=== PATIENT | female | born 1975 | race Two or more races ===

== ENCOUNTER 2025-08-17 18:11 | Inpatient (IN) | payer MEDICAID, OTHER ==
[~2025-08-17] VITALS: Ht 162.6 cm; Wt 100.4 kg
[2025-08-17] MEDS: ACETAMINOPHEN 500 MG TAB or CAP PO ONE (18:30)
[2025-08-17] MEDS: IBUPROFEN 600 MG TAB PO ONE ×2 (19:04→20:39)
--- NOTE | 2025-08-17 19:54 | ED.PDOC ---
History of Present Illness HPI Comments 49-year-old female who came to ER for flu-like symptoms. Patient denies any medical problems. States for the past 2 months, she has been having on and off fever, generalized muscle and joint pains, difficulty ambulating because of the pain, throat pain, was noted to have excessive urination especially at night. Upon arrival temperature is 103 F Chief Complaint: Flu like Time Seen by MD: 19:54 Reviewed Notes: Nurses Notes Allergies: Coded Allergies: NO KNOWN ALLERGIES (Unverified , 08/17/25) Home Meds Reported Medications Paroxetine (PAXIL TABLET) 20 Mg Tb, 40 MG GT for 30 Days 08/17/25 Trazodone Hcl (Trazodone Hcl) 100 Mg Tab, 100 MG PO, MG 08/17/25 Information Source: Patient Mode of Arrival: Ambulatory Severity: Moderate Past Medical History PAST MEDICAL HISTORY: Anxiety Surgical History: Denies all surgeries FINANCE PROFESSIONAL History: Denies all FINANCE PROFESSIONAL Hx Family History Family History: Reviewed,noncontributory to illness Social History Smoker: Non-Smoker Alcohol: Denies ETOH Use Drugs: Denies Drug Use Lives In: Home Constitutional: reports: fatigue, malaise, weakness; denies: chills, diaphoresis, fever, sweats, others EENTM: denies: blurred vision, double vision, ear bleeding, ear discharge, ear drainage, ear pain, ear ringing, eye pain, eye redness, hearing loss, mouth pain, mouth swelling, nasal discharge, nose bleeding, nose congestion, nose pain, photophobia, tearing, throat pain, throat swelling, voice changes, others Respiratory: denies: cough, hemoptysis, orthopnea, SOB at rest, shortness of breath, SOB with excertion, stridor, wheezing, others Cardiovascular: denies: chest pain, dizzy spells, diaphoresis, Dyspnea on exertion, edema, irregular heart beat, left arm pain, lightheadedness, palpitations, PND, syncope, others Gastrointestinal: denies: abdomen distended, abdominal pain, blood streaked bowels, constipated, diarrhea, dysphagia, difficulty swallowing, hematemesis, melena, nausea, poor appetite, poor fluid intake, rectal bleeding, rectal pain, vomiting, others Genitourinary: denies: abnormal vagina bleeding, burning, dyspareunia, dysuria, flank pain, frequency, hematuria, incontinence, pain, , vagina discharge, urgency, others Neurological: denies: dizziness, fainting, headache, left sided numbness, left sided weakness, numbness, paresthesia, pre-existing deficit, right sided numbness, right sided weakness, seizure, speech problems, tingling, tremors, weakness, others Musculoskeletal: denies: back pain, gout, joint pain, joint swelling, muscle pain, muscle stiffness, neck pain, others Integumetry: denies: bruises, change in color, change in hair/nails, dryness, laceration, lesions, lumps, rash, wounds, others Allergic/Immunocompromised: denies: Difficulty Healing, Frequent Infections, Hives, Itching, others Hematologic/Lymphatic: denies: anemia, blood clots, easy bleeding, easy bruising, swollen glands, others Endocrine: reports: excessive urination; denies: excessive hunger, excessive sweating, excessive thirst, flushing, intolerance to cold, intolerance to heat, unexplained weight gain, unexplained weight loss, others Psychiatric: denies: anxiety, bipolar disorder, depression, hopeless, panic disorder, schizophrenia, sleepless, suicidal, others Physical Exam General Appearance: No Apparent Distress, Normal HEENT: Normal ENT Inspection, Pharynx Normal, TMs Normal Neck: Full Range of Motion, Non-Tender, Normal, Normal Inspection Respiratory: Chest Non-Tender, Lungs Clear, No Accessory Muscle Use, No Respiratory Distress, Normal Breath Sounds Cardiovascular: No Edema, No JVD, No Murmur, No Gallop, Normal Peripheral Pulses, Regular Rate/Rhythm Breast Exam: Deferred Gastrointestinal: No Organomegaly, Non Tender, No Pulsatile Mass, Normal Bowel Sounds, Soft Genitalia: Deferred Pelvic: Deferred Rectal: Deferred Extremities: No calf tenderness, Normal capillary refill, Normal inspection, Normal range of motion, Non-tender, No pedal edema Musculoskeletal : Apperance: Normal Neurologic: Alert, ingredient specialist II-XII nml as Tested, No Motor Deficits, Normal Affect, Normal Mood, No Sensory Deficits Cerebellar Function: Normal Reflexes: Normal Skin: Dry, Normal Color, Warm Lymphatic: No Adenopathy Was a procedure done? Was a procedure done?: No EKG EKG : Pulse Rate (adult): 126 Cardiac Rhythm: ST Differential Dx Considerations may include: Anemia, electrolyte imbalance, viral syndrome X-Ray, Labs, Meds, VS Vital Signs Date Time Temp Pulse Resp B/P (MAP) Pulse Ox O2 Delivery O2 Flow Rate FiO2 08/17/25 20:31 Room Air* 0 21 08/17/25 20:30 98.9 111 18 91/66 (74) 95 98.9 08/17/25 19:55 126 08/17/25 19:04 103.2 08/17/25 19:00 103.2 103.2 08/17/25 19:00 103.2 08/17/25 18:30 103.0 08/17/25 18:17 103.0 131 18 122/76 94 103.0 Lab Test 08/17/25 20:26 08/17/25 20:07 08/17/25 20:01 Range/Units Urine Color Yellow Yellow Urine Clarity Turbid H Clear Urine pH 6.0 5.0-9.0 Urine Specific [place] 1.023 1.001-1.035 Urine Protein 1+ H Negative Urine Ketones Negative Negative Urine Blood Negative Negative /uL Urine Nitrite Negative Negative Urine Bilirubin Negative Negative Urine Urobilinogen 2 H Negative mg/dL Urine Leukocyte Esterase 2+ Negative /uL Urine RBC 3 0 - 4 /hpf Urine Microscopic WBC 9 H 0-5 /HPF Urine Squamous Epithelial Cells Mod <5 /hpf Urine Bacteria None seen None Seen /hpf Urine Mucus Few None Seen Urine Glucose Normal Normal mg/dL Influenza Type A Antigen Negative Negative Influenza Type B Antigen Negative Negative White Blood Count 14.4 H 4.4-10.8 10^3/uL Red Blood Count 5.24 H 4.0-5.20 10^6/uL Hemoglobin 14.6 12.2-16.2 g/dL Hematocrit 44.0 36.0-46.0 % Mean Corpuscular Volume 83.9 80.0-100.0 fL Mean Corpuscular Hemoglobin 27.8 L 28.0-32.0 pg Mean Corpuscular Hemoglobin Concent 33.1 32.0-36.0 g/dL Red Cell Distribution Width 13.2 11.8-14.3 % Platelet Count 342 140-450 10^3/uL Mean Platelet Volume 8.4 6.9-10.8 fL Neutrophils (%) (Auto) 82.4 H 37.0-80.0 % Lymphocytes (%) (Auto) 10.0 10.0-50.0 % Monocytes (%) (Auto) 7.3 0.0-12.0 % Eosinophils (%) (Auto) 0.1 0.0-7.0 % Basophils (%) (Auto) 0.2 0.0-2.0 % Neutrophils # (Auto) 11.9 H 1.6-8.6 10 ^3/uL Lymphocytes # (Auto) 1.4 0.4-5.4 10 ^3/uL Monocytes # (Auto) 1.1 0-1.3 10 ^3/uL Eosinophils # (Auto) 0 0-0.8 10 ^3/uL Basophils # (Auto) 0 0-0.2 10 ^3/uL Nucleated Red Blood Cells 0.0 % Sodium Level 134 L 136-145 mmol/L Potassium Level 3.8 3.5-5.1 mmol/L Chloride Level 100 98-107 mmol/L Carbon Dioxide Level 24 20-31 mmol/L Anion Gap 10 5-15 Blood Urea Nitrogen 14 9-23 mg/dL Creatinine 1.02 0.550-1.02 mg/dL Glomerular Filtration Rate Calc 67 >90 mL/min BUN/Creatinine Ratio 13.7 10.0-20.0 Serum Glucose 128 H 74-106 mg/dL Hemoglobin A1c 5.6 <5.7 % A1C Lactic Acid Level 1.2 0.4-2.0 mmol/L Calcium Level 9.3 8.7-10.4 mg/dL Total Bilirubin 0.6 0.2-1.0 mg/dL Aspartate Amino Transferase (AST) 38 13-40 U/L Alanine Aminotransferase (ALT) 64 H 7-40 U/L Alkaline Phosphatase 269 H 46-116 U/L Total Protein 8.2 5.7-8.2 g/dL Albumin 4.8 3.2-4.8 g/dL Beta HCG, Quantitative 1.3 L 1.5-4.2 mIU/mL Current Medications Medications (Trade) Dose Ordered Sig/Marika Route Start Time Stop Time Status Last Admin Acetaminophen (Tylenol Tablet Or Capsule) 1,000 mg ONCE ONCE PO 08/17/25 18:30 08/17/25 18:31 DC 08/17/25 18:30 Ibuprofen (Motrin Tablet) 600 mg ONCE ONCE PO 08/17/25 19:00 08/17/25 19:01 DC 08/17/25 19:04 Ibuprofen (Motrin Tablet) 600 mg ONCE ONCE PO 08/17/25 20:00 08/17/25 20:01 DC 08/17/25 20:39 Sodium Chloride 1,700 ml @ 1,700 mls/hr ONCE ONCE IV 08/17/25 20:00 08/17/25 20:59 DC 08/17/25 20:30 Ceftriaxone Sodium 50 ml @ 100 mls/hr ONCE ONCE IV 08/17/25 20:00 08/17/25 20:29 DC 08/17/25 20:30 CHEST RADIOGRAPH INDICATION: fever TECHNIQUE: Single frontal view of the chest was obtained COMPARISON: None FINDINGS: Lines and Tubes: None Lungs: No focal consolidation. Pleura: No effusion. No pneumothorax. Cardiomediastinal contours: Unremarkable Bones: No acute osseous abnormality. IMPRESSION: No acute cardiopulmonary disease. Time of 1ST Reevaluation: 19:52 Reevaluation 1ST: Unchanged Patient Education/Counseling: Diagnosis, Treatment Family Education/Counseling: Diagnosis, Treatment SEPSIS Sepsis Screen Date sepsis recognized/suspect: Aug 17, 2025 Time Sepsis recognized/suspect: 1818 Recent Procedure: No On Antibiotic Therapy: No Respiratory Rate >20: No Heart Rate >90: Yes Temp<36 C (96.8 F) or >38.3 C: No SBP <90 or MAP <65 mmHG: No New Acute Mental Status Change: No Is the patient on CPAP, BIPAP,: No Physician Orders Blood Culture (08/17/25 19:48) Chest Xray 1 View (08/17/25 19:48) Vital Signs Date Time Temp Pulse Resp B/P (MAP) Pulse Ox O2 Delivery O2 Flow Rate FiO2 08/17/25 20:31 Room Air* 0 21 08/17/25 20:30 98.9 111 18 91/66 (74) 95 98.9 08/17/25 19:55 126 08/17/25 19:04 103.2 08/17/25 19:00 103.2 103.2 08/17/25 19:00 103.2 08/17/25 18:30 103.0 08/17/25 18:17 103.0 131 18 122/76 94 103.0 Laboratory Tests Test 08/17/25 20:01 Lactic Acid Level 1.2 mmol/L (0.4-2.0) White Blood Count 14.4 10^3/uL (4.4-10.8) H Medications Medications Dose Ordered Sig/Marika Route Start Time Stop Time Status Last Admin Dose Admin Acetaminophen 1,000 mg ONCE ONCE PO 08/17/25 18:30 08/17/25 18:31 DC 08/17/25 18:30 Ceftriaxone Sodium 50 ml @ 100 mls/hr ONCE ONCE IV 08/17/25 20:00 08/17/25 20:29 DC 08/17/25 20:30 Ibuprofen 600 mg ONCE ONCE PO 08/17/25 19:00 08/17/25 19:01 DC 08/17/25 19:04 Ibuprofen 600 mg ONCE ONCE PO 08/17/25 20:00 08/17/25 20:01 DC 08/17/25 20:39 Sodium Chloride 1,700 ml @ 1,700 mls/hr ONCE ONCE IV 08/17/25 20:00 08/17/25 20:59 DC 08/17/25 20:30 Departure 1 Departure Time of Disposition: 21:50 Impression: Primary Impression: UTI (urinary tract infection) Additional Impression: Pyelonephritis Disposition: ADMITTED INPATIENT Admit to: Med Surg Condition: Guarded Discharged With: Self Comments 49 yo female with malaise and high fever. WBC elevated 14. UA shows UTI. given IV fluids and IV antibiotics. will need admit for supportive care and further workup Critical Care Note Critical Care Time?: No Stability Stability form required: No Heart Score Heart Score: Heart Score Response (Comments) Value History N/A 0 EKG N/A 0 Age N/A 0 Risk Factors N/A 0 Troponin N/A 0 Total 0 I personally scribed for ALLISON GUERRERO MD (NEELIMA) on 08/17/25 at 19:54. Electronically submitted by Anthony Galan ([employer]). I personally scribed for ALLISON GUERRERO MD (NEELIMA) on 08/17/25 at 19:55. Electron[facility] submitted by [facility] Gal[facility] ([facility] I personally scribed for ALLISON GUERRERO MD (NEELIMA) on 08/17/25 at 21:44. Electronically submitted by Anthony Galan ([facility] ALLISON GUERRERO MD Aug 17, 2025 19:54
[2025-08-17 20:25] LABS: Hematocrit 44.0 % (36.0-46.0); Hemoglobin 14.6 g/dL (12.2-16.2); Mean Corpuscular Hemoglobin 27.8 pg (28.0-32.0); Mean Corpuscular Volume 83.9 fL (80.0-100.0); Nucleated Red Blood Cells % 0.0 %
[2025-08-17] MEDS: SODIUM CHLORIDE 0.9% 1,700 ML IV ONE (20:30)
[2025-08-17 20:35] LABS: Urine Protein, UAD 1+ (Negative)
[2025-08-17] MEDS: ACETAMINOPHEN 325 MG TAB PO ONE (20:39)
--- NOTE | 2025-08-17 20:39 | DVH ---
CHEST RADIOGRAPH INDICATION: fever TECHNIQUE: Single frontal view of the chest was obtained COMPARISON: None FINDINGS: Lines and Tubes: None Lungs: No focal consolidation. Pleura: No effusion. No pneumothorax. Cardiomediastinal contours: Unremarkable Bones: No acute osseous abnormality. IMPRESSION: No acute cardiopulmonary disease.
[2025-08-17 20:42] LABS: Albumin 4.8 g/dL (3.2-4.8); Anion Gap 10 (5-15); BUN/Creatinine Ratio 13.7 (10.0-20.0); Blood Urea Nitrogen 14 mg/dL (9-23); Calcium 9.3 mg/dL (8.7-10.4); Carbon Dioxide 24 mmol/L (20-31); Chloride 100 mmol/L (98-107); Potassium 3.8 mmol/L (3.5-5.1)
[2025-08-17 20:43] LABS: Bilirubin, Total 0.6 mg/dL (0.2-1.0)
[2025-08-17 20:45] LABS: Alanine Aminotransferase 64 U/L (7-40); Alkaline Phosphatase 269 U/L (46-116); Glucose 128 mg/dL (74-106); Sodium 134 mmol/L (136-145); Total Protein 8.2 g/dL (5.7-8.2)
[2025-08-17] MEDS ORDERED: NITROGLYCERIN 0.4 MG SL TAB SL PRN (21:45)
[2025-08-17] MEDS ORDERED: DOCUSATE SOD 100 MG CAP PO PRN (21:45)
[2025-08-17] MEDS ORDERED: MORPHINE SULFATE INJ 2 MG/ml SYRG IV PRN ×2 (21:45)
--- NOTE | 2025-08-17 21:55 | DVHHPRES ---
History of Present Illness Resident Creating Document: LURDES BARRAZA RESIDENT History of Present Illness HERMES JONES A 49-year-old female with a history of generalized anxiety disorder, poor medical follow up, presents to the ER with flu-like symptoms, reporting intermittent fever, generalized muscle and joint pain causing difficulty ambulating, throat pain, and nocturnal polyuria for the past two months, with a current temperature of 103F and flu-like symptoms. PMHx: generalized anxiety PSHx: denies past surgeries OBGYN Hx: Denies pertinent MRI CT TECH Hx Family history: noncontributory Social history: Patient is a non-smoker, denies alcohol and drug use, and lives at home. Home medications: None Review of Systems Constitutional: Yes: Fever, Chills, Sweats, Malaise; No: Weakness, Other Eyes: No: Pain, Vision change, Conjunctivae inflammation, Eyelid inflammation, Other, Redness ENT: Throat pain; No: Ear pain, Ear discharge, Nose pain, Nose discharge, Nose congestion, Mouth pain, Mouth swelling, Throat swelling, Other Respiratory: No: Cough, Dry, Shortness of breath, SOB with excertion, Wheezing, Hemoptysis, Pleuritic Pain, Sputum, Wheezing, Other Cardiovascular: No: Chest Pain, Palpitations, Orthopnea, Paroxysmal Noc. Dyspnea, Edema, Lt Headedness, Other Gastrointestinal: No: Nausea, Vomiting, Abdominal Pain, Diarrhea, Constipation, Melena, Hematochezia, Other Genitourinary: Dysuria, Frequency; No Incontinence, No Hematuria, No Retention, No Other Musculoskeletal: No: other, neck pain, shoulder pain, arm pain, back pain, hand pain, leg pain, foot pain Skin: No: Rash, Lesions, Jaundice, Bruising, Other Neurological: No: Weakness, Numbness, Incoordination, Change in speech, Confusion, Seizures, Other Allergies: Coded Allergies: NO KNOWN ALLERGIES (Unverified , 08/17/25) Medications Current Medications Medications Dose Ordered Sig/Marika Route Start Time Stop Time Status Last Admin Dose Admin Acetaminophen/ Hydrocodone Bitart 1 tab Q4HP PRN PO 08/17/25 21:45 Ondansetron HCl 4 mg Q4HP PRN IV 08/17/25 21:45 Docusate Sodium 100 mg BIDPRN PRN PO 08/17/25 21:45 Enoxaparin Sodium 40 mg DAILY SC 08/18/25 10:00 Acetaminophen 650 mg Q6HP PRN PO 08/17/25 21:45 Morphine Sulfate 2 mg Q4HPRN PRN IV 08/17/25 21:45 Nitroglycerin 0.4 mg Q5MINP PRN SL 08/17/25 21:45 Morphine Sulfate 2 mg Q30M PRN IV 08/17/25 21:45 Famotidine 20 mg BID PO 08/17/25 22:00 UNV Exam Vital Signs Vital Signs Date Time Temp Pulse Resp B/P (MAP) Pulse Ox O2 Delivery O2 Flow Rate FiO2 08/17/25 20:31 Room Air* 0 21 08/17/25 20:30 98.9 111 18 91/66 (74) 95 98.9 General Appearance: Alert, Oriented X3, Cooperative, mild distress HEENT: Atraumatic, PERRLA, EOMI, Mucous membr. moist/pink Respiratory: Clear to auscultation, Normal air movement Cardiovascular: Regular rate, Normal S1, Normal S2, No murmurs Abdominal: Normal bowel sounds, Soft, No tenderness, No hepatospenomegaly, No masses, Other (NO CVA angle tenderness, suprapubic tenderness on deep palpation) Extremities: No clubbing, No cyanosis, No edema, Normal pulses, Other (no leg swelling) Skin: No rashes, No breakdown, No significant lesion Neuro: Normal gait, Normal speech, Strength at 5/5 X4 ext, Normal tone, Sensation intact, Cranial nerves 3-12 NL, Reflexes 2+ Psych/Mental Status: Mental status NL, Mood NL Labs/Xrays Labs Test 08/17/25 20:26 08/17/25 20:07 08/17/25 20:01 Range/Units Urine Color Yellow Yellow Urine Clarity Turbid H Clear Urine pH 6.0 5.0-9.0 Urine Specific [place] 1.023 1.001-1.035 Urine Protein 1+ H Negative Urine Ketones Negative Negative Urine Blood Negative Negative /uL Urine Nitrite Negative Negative Urine Bilirubin Negative Negative Urine Urobilinogen 2 H Negative mg/dL Urine Leukocyte Esterase 2+ Negative /uL Urine RBC 3 0 - 4 /hpf Urine Microscopic WBC 9 H 0-5 /HPF Urine Squamous Epithelial Cells Mod <5 /hpf Urine Bacteria None seen None Seen /hpf Urine Mucus Few None Seen Urine Glucose Normal Normal mg/dL Influenza Type A Antigen Negative Negative Influenza Type B Antigen Negative Negative White Blood Count 14.4 H 4.4-10.8 10^3/uL Red Blood Count 5.24 H 4.0-5.20 10^6/uL Hemoglobin 14.6 12.2-16.2 g/dL Hematocrit 44.0 36.0-46.0 % Mean Corpuscular Volume 83.9 80.0-100.0 fL Mean Corpuscular Hemoglobin 27.8 L 28.0-32.0 pg Mean Corpuscular Hemoglobin Concent 33.1 32.0-36.0 g/dL Red Cell Distribution Width 13.2 11.8-14.3 % Platelet Count 342 140-450 10^3/uL Mean Platelet Volume 8.4 6.9-10.8 fL Neutrophils (%) (Auto) 82.4 H 37.0-80.0 % Lymphocytes (%) (Auto) 10.0 10.0-50.0 % Monocytes (%) (Auto) 7.3 0.0-12.0 % Eosinophils (%) (Auto) 0.1 0.0-7.0 % Basophils (%) (Auto) 0.2 0.0-2.0 % Neutrophils # (Auto) 11.9 H 1.6-8.6 10 ^3/uL Lymphocytes # (Auto) 1.4 0.4-5.4 10 ^3/uL Monocytes # (Auto) 1.1 0-1.3 10 ^3/uL Eosinophils # (Auto) 0 0-0.8 10 ^3/uL Basophils # (Auto) 0 0-0.2 10 ^3/uL Nucleated Red Blood Cells 0.0 % Sodium Level 134 L 136-145 mmol/L Potassium Level 3.8 3.5-5.1 mmol/L Chloride Level 100 98-107 mmol/L Carbon Dioxide Level 24 20-31 mmol/L Anion Gap 10 5-15 Blood Urea Nitrogen 14 9-23 mg/dL Creatinine 1.02 0.550-1.02 mg/dL Glomerular Filtration Rate Calc 67 >90 mL/min BUN/Creatinine Ratio 13.7 10.0-20.0 Serum Glucose 128 H 74-106 mg/dL Lactic Acid Level 1.2 0.4-2.0 mmol/L Calcium Level 9.3 8.7-10.4 mg/dL Total Bilirubin 0.6 0.2-1.0 mg/dL Aspartate Amino Transferase (AST) 38 13-40 U/L Alanine Aminotransferase (ALT) 64 H 7-40 U/L Alkaline Phosphatase 269 H 46-116 U/L Total Protein 8.2 5.7-8.2 g/dL Albumin 4.8 3.2-4.8 g/dL SEPSIS Sepsis Screen Date sepsis recognized/suspect: Aug 17, 2025 Time Sepsis recognized/suspect: 2030 Recent Procedure: No On Antibiotic Therapy: Yes Respiratory Rate >20: No Heart Rate >90: Yes Temp<36 C (96.8 F) or >38.3 C: No SBP <90 or MAP <65 mmHG: No New Acute Mental Status Change: No Is the patient on CPAP, BIPAP,: No Physician Orders Blood Culture (08/17/25 19:48) Chest Xray 1 View (08/17/25 19:48) Admit (08/17/25 21:34) Allergies (08/17/25:34) Code Status (08/17/25 21:34) Hydrocodone-Acet 5/325mg Tab ([place] 5/32 (08/17/25 21:45) Ondansetron Hcl (Zofran) (08/17/25 21:45) Docusate Sodium Capsule (Colace Capsule) (08/17/25 21:45) Enoxaparin Sodium (Lovenox) (08/18/25 10:00) Complete Blood Count (08/18/25 04:00) Comprehensive Metabolic Panel (08/18/25 04:00) Npo (Nothing By Mouth) Diet (08/18/25 Breakfast) Condition: Serious (08/17/25 21:34) Acetaminophen Tablet (Tylenol Tablet) (08/17/25 21:45) Morphine Sulfate Injection (08/17/25 21:45) Nitroglycerin Sublingual (Ntrostat Subli (08/17/25 21:45) Morphine Sulfate Injection (08/17/25 21:45) Oxygen By Nasal Cannula (08/17/25:34) Stat Ekg For Chest Pain (08/17/25 21:34) Notify Md Of Changes From Base (08/17/25 21:34) Communications Consultant For 24 Hours (08/17/25 21:34) Emergency Dysrhythmia Protocol (08/17/25 21:34) Rhythm Strips Once Every Shift (08/17/25 21:34) Urine Bacterial Culture (08/17/25 21:43) Rapid Strep Screen - Throat (08/17/25 21:43) Kidney (08/17/25 21:43) Cooling Swengel (08/17/25 21:45) Cooling Measure (08/17/25 ) Lactated Ringer's (08/17/25 21:45) Beta Hcg, Quantitative (08/17/25 21:46) Piperacillin-Tazob 3.375gm (Zosyn 3.375g (08/17/25 22:00) Famotidine Injection (Pepcid Injection) (08/17/25 22:00) Famotidine Tablet (Pepcid Tablet) (08/17/25 22:00) Abdomen Complete Sonogram (08/17/25 21:43) Covid19 Antigen Gena (08/17/25 ) Vital Signs Date Time Temp Pulse Resp B/P (MAP) Pulse Ox O2 Delivery O2 Flow Rate FiO2 08/17/25 20:31 Room Air* 0 21 08/17/25 20:30 98.9 111 18 91/66 (74) 95 98.9 08/17/25 19:55 126 08/17/25 19:04 103.2 08/17/25 19:00 103.2 103.2 08/17/25 19:00 103.2 08/17/25 18:30 103.0 08/17/25 18:17 103.0 131 18 122/76 94 103.0 Laboratory Tests Test 08/17/25 20:01 Lactic Acid Level 1.2 mmol/L (0.4-2.0) White Blood Count 14.4 10^3/uL (4.4-10.8) H Medications Medications Dose Ordered Sig/Marika Route Start Time Stop Time Status Last Admin Dose Admin Acetaminophen 1,000 mg ONCE ONCE PO 08/17/25 18:30 08/17/25 18:31 DC 08/17/25 18:30 1,000 MG Ceftriaxone Sodium 50 ml @ 100 mls/hr ONCE ONCE IV 08/17/25 20:00 08/17/25 20:29 DC 08/17/25 20:30 100 MLS/HR Ibuprofen 600 mg ONCE ONCE PO 08/17/25 19:00 08/17/25 19:01 DC 08/17/25 19:04 600 MG Ibuprofen 600 mg ONCE ONCE PO 08/17/25 20:00 08/17/25 20:01 DC 08/17/25 20:39 600 MG Sodium Chloride 1,700 ml @ 1,700 mls/hr ONCE ONCE IV 08/17/25 20:00 08/17/25 20:59 DC 08/17/25 20:30 1,700 MLS/HR Assessment/Plan Assessment/Plan #acute complicated UTI: Urinary symptoms with frequency urgency and burning, Urinalysis positive, also ruled out STDs in his sexually active female, although less likely given Predominant urinary symptoms. renal ultrasound to rule out any obstruction /stones. pending beta HCG rule out . rule out DM with HbA1C. #acute sepsis: WBC 14.4, predominant neutrophilia, fever, urinalysis indicative of acute UTI , sepsis bundle, sepsis dose IV fluid, blood culture, urine culture and IV antibiotics. Lactate negative. Keep a map over 65. #high-grade fever likely secondary due to infection /sepsis: 103 at presentation, cooling measures, Tylenol, to continue, appropriate reflex tac hycardia noted. #acute throat pain: for past 2-3 days, progressive, Rule out possible URI with COVID and strep throat to check, no signs of acute drooling. CXR wnl, in RA, breathing comfortably. #Transaminitis with alkaline phosphatase: Abdomen examination benign, ALT 64, alkaline phosphatase 269, with was reviewed rehabilitation, right upper quadrant ultrasound/ liver ultrasound to rule out any hepatobiliary pathology. Till ruled out hepatobiliary pathology, we will cover with Zosyn for anaerobic coverage. #Grade 1 obesity: 34.8 BMI, weight loss and lifestyle modification advised when patient is out of acute conditions. #Possible CKD versus POLA: No known baseline GFR in 60s avoid nephrotoxic, IV hydration to continue. Avoid NSAIDs. #Mild hypovolumic hyponatremia: Na 134, iv hydration, trend electrolytes. Diet: Regular PUD prophylaxis: famotidine p.o. DVT prophylaxis: Levonox 40mg/brisk movement. Barriers to discharge: Medical diagnosis and management in progress. Patient lives with family. Independent for ADL. PCP: none, personal care aid consulted. Previously Dr. Horan. Specialist Relevant To Admission: None at the time of admission. Case discussed with Dr. Marquez. Code Status: Full Code. Discussion for goals of care and plan of care needed total 27 minutes bedside. on telemetry for now hemodynamically unstable, once patient is more stable downgrade to [facility]. Plan discussed with: Patient My Orders Orders - LURDES BARRAZA RESIDENT Procedure Category Date Status Time Admit ADMIT 08/17/25 Transmitted 21:34 Allergies IGNACIO 08/17/25 In Process 21:34 Code Status CODE 08/17/25 Transmitted 21:34 Hydrocodone-Acet PHA 08/17/25 In Process 5/325mg Tab ([place]inckley 21:45 Ondansetron Hcl PHA 08/17/25 In Process (Zofran) 21:45 Docusate Sodium PHA 08/17/25 In Process Capsule (Colace 21:45 Enoxaparin Sodium PHA 08/18/25 In Process (Lovenox) 10:00 Complete Blood Count LAB 08/18/25 Verified 04:00 Comprehensive LAB 08/18/25 Verified Metabolic Panel 04:00 Npo (Nothing By DIET 08/18/25 Transmitted Mouth) Diet Breakfast Condition: Serious IGNACIO 08/17/25 In Process 21:34 Acetaminophen Tablet PHA 08/17/25 In Process (Tylenol Tablet) 21:45 Morphine Sulfate PHA 08/17/25 In Process Injection 21:45 Nitroglycerin PHA 08/17/25 In Process Sublingual (Ntrostat 21:45 Morphine Sulfate PHA 08/17/25 In Process Injection 21:45 Oxygen By Nasal RT 08/17/25 Transmitted Cannula 21:34 Stat Ekg For Chest IGNACIO 08/17/25 In Process Pain 21:34 Notify Md Of Changes IGNACIO 08/17/25 In Process From Base 21:34 Communications Consultant For IGNACIO 08/17/25 In Process 24 Hours 21:34 Emergency Dysrhythmia IGNACIO 08/17/25 In Process Protocol 21:34 Rhythm Strips Once IGNACIO 08/17/25 In Process Every Shift 21:34 Urine Bacterial LOS 08/17/25 In Process Culture 21:43 Rapid Strep Screen - LAB 08/17/25 Logged Throat 21:43 Kidney US 08/17/25 Logged 21:43 Cooling Swengel IGNACIO 08/17/25 In Process 21:45 Cooling Measure ED NURSING 08/17/25 Transmitted Lactated Ringer's PHA 08/17/25 In Process 21:45 Beta Hcg, Quantitative LAB 08/17/25 In Process 21:46 Piperacillin-Tazob PHA 08/17/25 Logged 3.375gm (Zosyn 3.375g 22:00 Famotidine Injection PHA 08/17/25 Logged (Pepcid Injection) 22:00 Famotidine Tablet PHA 08/17/25 Logged (Pepcid Tablet) 22:00 Abdomen Complete US 08/17/25 Logged Sonogram 21:43 Covid19 Antigen Gena LAB 08/17/25 Verified Date of Service: Aug 17, 2025 Billing Provider: FLORENTINO MARQUEZ MD Common Visit Codes: [id number] INP/OBS CARE (HIGH) Secondary Visit Codes: [id number] CARE PLAN 30 MINUTES LURDES BARRAZA RESIDENT Aug 17, 2025 21:55
[2025-08-17] MEDS: FAMOTIDINE (10MG/ML) 2ML VL IV ONE (22:11)
[2025-08-17] MEDS: LACTATED RINGER'S 1,000 ML IV ONE (22:11)
[2025-08-17] MEDS: PIPERACILLIN-TAZOB 3.375GM 100 ML IV ONE (22:14)
[2025-08-17] MEDS: FAMOTIDINE 20 MG TAB PO SCH (22:14)
[2025-08-17 22:59] VITALS: BP 107/76; PULSE 80; RESP 18; TEMP 98.2; O2SAT 98
[2025-08-17] MEDS ORDERED: TRAZ-228 PO (23:31)
[2025-08-17] MEDS ORDERED: PAR20T GT (23:31)
[2025-08-18] VITALS (7 sets, daily range): BP systolic 121–127; BP diastolic 67–96; PULSE 85–123; RESP 16–18; TEMP 97.3–101.9; O2SAT 92–96
[2025-08-18 00:21] LABS: COVID19 ANTIGEN SOFIA FIA NEGATIVE (NEGATIVE)
--- NOTE | 2025-08-18 00:26 | DVH ---
ULTRASOUND ABDOMEN: REASON FOR EXAM: Pain. Rule out hepatobiliary obstruction TECHNIQUE: Real-time sector scans in the transverse and longitudinal planes were obtained through the abdomen. FINDINGS: The liver is of normal size and contour. There is no intrahepatic biliary ductal dilatation. The hepatic veins are patent. There is hepatopetal flow in the portal vein. The common bile duct measures 4 mm. No gallstones or sludge are identified. There is no gallbladder wall thickening nor pericholecystic fluid. There is no sonographic Mendoza's sign. The spleen is normal in size. The visualized portion of the pancreas is unremarkable. The right kidney measures 8.4 cm. The left kidney measures 8.9 cm. There is no hydronephrosis or nephrolithiasis. There is no evidence of focal renal mass. There is an anechoic 2.1 cm cyst at the superior pole of the right kidney. The visualized portions of the abdominal aorta demonstrate no evidence of aneurysmal dilatation. The visualized inferior vena cava is unremarkable. There is no free intraperitoneal fluid. IMPRESSION: No evidence of intrahepatic or extrahepatic biliary dilation. No cholelithiasis identified. No sonographic mendoza's sign. Mildly atrophic kidneys.
[2025-08-18 05:01] LABS: Hematocrit 36.2 % (36.0-46.0); Hemoglobin 12.3 g/dL (12.2-16.2); Mean Corpuscular Hemoglobin 28.4 pg (28.0-32.0); Mean Corpuscular Volume 83.8 fL (80.0-100.0); Nucleated Red Blood Cells % 0.1 %
[2025-08-18 05:17] LABS: Albumin 3.7 g/dL (3.2-4.8); Anion Gap 8 (5-15); BUN/Creatinine Ratio 15.4 (10.0-20.0); Bilirubin, Total 0.5 mg/dL (0.2-1.0); Blood Urea Nitrogen 12 mg/dL (9-23); Calcium 8.9 mg/dL (8.7-10.4); Carbon Dioxide 26 mmol/L (20-31); Chloride 107 mmol/L (98-107); Glucose 98 mg/dL (74-106); Potassium 3.7 mmol/L (3.5-5.1); Sodium 141 mmol/L (136-145); Total Protein 6.4 g/dL (5.7-8.2)
[2025-08-18 05:26] LABS: Alanine Aminotransferase 44 U/L (7-40); Alkaline Phosphatase 199 U/L (46-116)
[2025-08-18] MEDS: ENOXAPARIN SOD 40 MG/0.4 ML SYRINGE SC SCH (10:16)
--- NOTE | 2025-08-18 13:32 | DVHPN2 ---
Reviewed: Care Plan, H&P, Labs, Medications, Previous Orders, Radiology Changes from previous H/P or p: No Changes Eyes: No Pain, No Vision change, No Conjunctivae inflammation, No Eyelid inflammation, No Other, No Redness ENT: No Ear pain, No Ear discharge, No Nose pain, No Nose discharge, No Nose congestion, No Mouth pain, No Mouth swelling; Throat pain; No Throat swelling, No Other Cardiovascular: No Chest Pain, No Palpitations, No Orthopnea, No Paroxysmal Noc. Dyspnea, No Edema, No Lt Headedness, No Other Respiratory: No Cough, No Dry, No Shortness of breath, No SOB with excertion, No Wheezing, No Hemoptysis, No Pleuritic Pain, No Sputum, No Other Gastrointestinal: No Nausea, No Vomiting, No Abdominal Pain, No Diarrhea, No Constipation, No Melena, No Hematochezia, No Other Genitourinary: Dysuria, Frequency; No Incontinence, No Hematuria, No Retention, No Other Musculoskeletal: No other, No neck pain, No shoulder pain, No arm pain, No back pain, No hand pain, No leg pain, No foot pain Skin: No Rash, No Lesions, No Jaundice, No Bruising, No Other Objective Vitals Vital Signs Date Time Temp Pulse Resp B/P (MAP) Pulse Ox O2 Delivery O2 Flow Rate FiO2 08/18/25 12:45 99.5 101 18 121/87 (98) 96 99.5 08/17/25 22:59 Room Air* 0 21 Intake/Output Intake and Output 08/18/25 07:00 Intake Total 1750 ml Output Total 0 ml Balance 1750 ml Intake Oral 0 ml IV Total 1750 ml Output Urine Total 0 ml # Voids 1 Medications Current Medications Medications Dose Ordered Sig/Marika Route Start Time Stop Time Status Last Admin Dose Admin Acetaminophen/ Hydrocodone Bitart 1 tab Q4HP PRN PO 08/17/25 21:45 Ondansetron HCl 4 mg Q4HP PRN IV 08/17/25 21:45 Docusate Sodium 100 mg BIDPRN PRN PO 08/17/25 21:45 Enoxaparin Sodium 40 mg DAILY SC 08/18/25 10:00 08/18/25 10:16 40 MG Acetaminophen 650 mg Q6HP PRN PO 08/17/25 21:45 Morphine Sulfate 2 mg Q4HPRN PRN IV 08/17/25 21:45 Nitroglycerin 0.4 mg Q5MINP PRN SL 08/17/25 21:45 Morphine Sulfate 2 mg Q30M PRN IV 08/17/25 21:45 Famotidine 20 mg BID PO 08/17/25 22:00 08/17/25 22:14 20 MG Laboratory Results Laboratory Tests 08/18/25 04:41 Chemistry Test 08/17/25 20:01 08/18/25 04:41 Albumin 4.8 g/dL (3.2-4.8) 3.7 g/dL (3.2-4.8) Calcium Level 9.3 mg/dL (8.7-10.4) 8.9 mg/dL (8.7-10.4) Total Protein 8.2 g/dL (5.7-8.2) 6.4 g/dL (5.7-8.2) LFT Test 08/17/25 20:01 08/18/25 04:41 Alanine Aminotransferase (ALT) 64 U/L (7-40) H 44 U/L (7-40) H Alkaline Phosphatase 269 U/L (46-116) H 199 U/L (46-116) H Aspartate Amino Transferase (AST) 38 U/L (13-40) 24 U/L (13-40) Total Bilirubin 0.6 mg/dL (0.2-1.0) 0.5 mg/dL (0.2-1.0) HgA1c, TSH Test 08/17/25 20:01 Hemoglobin A1c 5.6 % A1C (<5.7) Urinalysis Test 08/17/25 20:26 Urine Color Yellow (Yellow) Urine Clarity Turbid (Clear) H Urine pH 6.0 (5.0-9.0) Urine Specific [place] 1.023 (1.001-1.035) Urine Protein 1+ (Negative) H Urine Ketones Negative (Negative) Urine Blood Negative /uL (Negative) Urine Nitrite Negative (Negative) Urine Bilirubin Negative (Negative) Urine Urobilinogen 2 mg/dL (Negative) H Urine Leukocyte Esterase 2+ /uL (Negative) Urine RBC 3 /hpf (0 - 4) Urine Microscopic WBC 9 /HPF (0-5) H Urine Squamous Epithelial Cells Mod /hpf (<5) Urine Bacteria None seen /hpf (None Seen) Urine Mucus Few (None Seen) Urine Glucose Normal mg/dL (Normal) Microbiology Microbiology Date/Time Source Procedure Growth Status 08/17/25 20:26 Voided Urine Urine Culture - Preliminary No growth Resulted Labs and/or images reviewed: Labs reviewed by me, Image(s) reviewed by me Assessment/Plan Assessment/Plan Sepsis secondary to urinary tract infection: Blood cultures urine cultures Rocephin Transaminitis Anxiety Flu test negative Haylee test negative Time spent 45 minutes Plan discussed with: Patient My Orders Orders - EDWIGE CORTEZ MD Procedure Category Date Status Time Ceftriaxone Ivpb PHA 08/19/25 Verified Rocephin 09:00 Ceftriaxone Ivpb PHA 08/18/25 Verified Rocephin 13:30 Date of Service: Aug 18, 2025 Billing Provider: EDWIGE CORTEZ MD Common Visit Codes: [id number] INP/OBS CARE(HIGH) EDWIGE CORTEZ MD Aug 18, 2025 13:31
[2025-08-18] MEDS: guaiFENesin-DM 100/10mg/5ml SYR PO SCH (14:23)
[2025-08-18] MEDS: ACETAMINOPHEN 325 MG TAB PO PRN (14:24)
[2025-08-18] MEDS: HYDROcodone-ACET 5/325MG TAB PO PRN (17:11)
[2025-08-18] MEDS: ONDANSETRON HCL 4 MG/2 ML VIAL IV PRN (18:48)
[2025-08-18] MEDS: MORPHINE SULFATE 4 MG/ML SYR/VIAL IV PRN (18:50)
[2025-08-19] VITALS (8 sets, daily range): BP systolic 103–117; BP diastolic 62–88; PULSE 86–119; RESP 16–20; TEMP 97.3–101.4; O2SAT 93–97
[2025-08-19 07:22] LABS: Hematocrit 36.0 % (36.0-46.0); Hemoglobin 12.1 g/dL (12.2-16.2); Mean Corpuscular Hemoglobin 28.5 pg (28.0-32.0); Mean Corpuscular Volume 84.9 fL (80.0-100.0); Nucleated Red Blood Cells % 0.1 %
[2025-08-19 07:29] LABS: Anion Gap 7 (5-15); Carbon Dioxide 28 mmol/L (20-31); Chloride 102 mmol/L (98-107); Potassium 4.1 mmol/L (3.5-5.1); Sodium 137 mmol/L (136-145)
[2025-08-19 07:30] LABS: Calcium 8.7 mg/dL (8.7-10.4)
[2025-08-19 07:35] LABS: BUN/Creatinine Ratio 9.1 (10.0-20.0); Blood Urea Nitrogen 8 mg/dL (9-23); Glucose 109 mg/dL (74-106)
[2025-08-19] MEDS: PARoxetine 20 MG TAB PO SCH (09:47)
--- NOTE | 2025-08-19 10:37 | DVHPN2 ---
Reviewed: Care Plan, H&P, Labs, Medications, Previous Orders, Radiology Changes from previous H/P or p: No Changes Eyes: No Pain, No Vision change, No Conjunctivae inflammation, No Eyelid inflammation, No Other, No Redness ENT: No Ear pain, No Ear discharge, No Nose pain, No Nose discharge, No Nose congestion, No Mouth pain, No Mouth swelling; Throat pain; No Throat swelling, No Other Cardiovascular: No Chest Pain, No Palpitations, No Orthopnea, No Paroxysmal Noc. Dyspnea, No Edema, No Lt Headedness, No Other Respiratory: No Cough, No Dry, No Shortness of breath, No SOB with excertion, No Wheezing, No Hemoptysis, No Pleuritic Pain, No Sputum, No Other Gastrointestinal: No Nausea, No Vomiting, No Abdominal Pain, No Diarrhea, No Constipation, No Melena, No Hematochezia, No Other Genitourinary: Dysuria, Frequency; No Incontinence, No Hematuria, No Retention, No Other Musculoskeletal: No other, No neck pain, No shoulder pain, No arm pain, No back pain, No hand pain, No leg pain, No foot pain Skin: No Rash, No Lesions, No Jaundice, No Bruising, No Other Objective Vitals Vital Signs Date Time Temp Pulse Resp B/P (MAP) Pulse Ox O2 Delivery O2 Flow Rate FiO2 08/19/25 08:52 99.2 91 18 103/74 (84) 96 99.2 08/18/25 20:00 Room Air* 0 21 Intake/Output Intake and Output 08/19/25 07:00 Intake Total 1600 ml Balance 1600 ml Intake Oral 1600 ml # Voids 6 # Bowel Movements 2 Medications Current Medications Medications Dose Ordered Sig/Marika Route Start Time Stop Time Status Last Admin Dose Admin Acetaminophen/ Hydrocodone Bitart 1 tab Q4HP PRN PO 08/17/25 21:45 08/19/25 02:44 1 TAB Ondansetron HCl 4 mg Q4HP PRN IV 08/17/25 21:45 08/18/25 18:48 4 MG Docusate Sodium 100 mg BIDPRN PRN PO 08/17/25 21:45 Enoxaparin Sodium 40 mg DAILY SC 08/18/25 10:00 08/19/25 09:47 40 MG Acetaminophen 650 mg Q6HP PRN PO 08/17/25 21:45 08/19/25 05:03 650 MG Nitroglycerin 0.4 mg Q5MINP PRN SL 08/17/25 21:45 Morphine Sulfate 2 mg Q30M PRN IV 08/17/25 21:45 Famotidine 20 mg BID PO 08/17/25 22:00 08/19/25 09:47 20 MG Ceftriaxone Sodium 50 ml @ 100 mls/hr DAILY@09 IV 08/19/25 09:00 08/19/25 09:00 100 MLS/HR Trazodone HCl 100 mg HS PO 08/18/25 22:00 08/18/25 21:47 100 MG Paroxetine HCl 40 mg DAILY PO 08/19/25 10:00 08/19/25 09:47 40 MG Guaifenesin/ Dextromethorphan 10 ml TID PO 08/18/25 14:00 08/19/25 05:03 10 ML Morphine Sulfate 2 mg Q4HPRN PRN IV 08/18/25 18:45 08/18/25 23:34 2 MG Laboratory Results Laboratory Tests 08/19/25 06:38 Chemistry Test 08/19/25 06:38 Calcium Level 8.7 mg/dL (8.7-10.4) Urinalysis Test 08/17/25 20:26 Urine Color Yellow (Yellow) Urine Clarity Turbid (Clear) H Urine pH 6.0 (5.0-9.0) Urine Specific [place] 1.023 (1.001-1.035) Urine Protein 1+ (Negative) H Urine Ketones Negative (Negative) Urine Blood Negative /uL (Negative) Urine Nitrite Negative (Negative) Urine Bilirubin Negative (Negative) Urine Urobilinogen 2 mg/dL (Negative) H Urine Leukocyte Esterase 2+ /uL (Negative) Urine RBC 3 /hpf (0 - 4) Urine Microscopic WBC 9 /HPF (0-5) H Urine Squamous Epithelial Cells Mod /hpf (<5) Urine Bacteria None seen /hpf (None Seen) Urine Mucus Few (None Seen) Urine Glucose Normal mg/dL (Normal) Microbiology Microbiology Date/Time Source Procedure Growth Status 08/17/25 20:26 Voided Urine Urine Culture - Preliminary No growth Resulted 08/17/25 20:03 Blood Blood Culture - Preliminary NO GROWTH AFTER 24 HOURS OF INCUBATION. Resulted Labs and/or images reviewed: Labs reviewed by me, Image(s) reviewed by me Assessment/Plan Assessment/Plan Sepsis secondary to urinary tract infection: Blood cultures negative, urine cultures negative, continue Rocephin, add doxycycline Transaminitis CT abdomen pelvis without contrast negative Anxiety Flu test negative Haylee test negative Time spent 45 minutes RN jerry at bedside Plan discussed with: Patient My Orders Orders - EDWIGE CORTEZ MD Procedure Category Date Status Time Ceftriaxone 1gm/50ml PHA 08/19/25 In Process (Rocephin) 09:00 Trazodone Hcl PHA 08/18/25 In Process (Desyrel) 22:00 Paroxetine Tablet PHA 08/19/25 In Process (Paxil Tablet) 10:00 Regular Diet DIET 08/18/25 Transmitted Dinner Guaifenesin-Dextromet PHA 08/18/25 In Process Liquid (Robitussin 14:00 * Circulation Supervisor CONS 08/18/25 Transmitted Consult Date of Service: Aug 19, 2025 Billing Provider: EDWIGE CORTEZ MD Common Visit Codes: [id number] INP/OBS CARE(HIGH) EDWIGE CORTEZ MD Aug 19, 2025 10:37
[2025-08-19] MEDS: DOXYCYCLINE 100MG/100ML 100 ML IV SCH (10:45)
--- NOTE | 2025-08-19 11:51 | DVH ---
EXAM: CT CHEST WITHOUT CONTRAST History: Shortness of breath Comparison Study: XY CHEST XRAY 1 VIEW on DOS: 08/17/25 TECHNIQUE: Multidetector CT of the chest was performed. Imaging was performed without IV contrast. Axial, coronal, and sagittal multiplanar reformats were obtained from the axial data set by the technologist. Radiation Dose : CTDI vol 15.1 mGy, DLP 493.4 mGy*cm. FINDINGS: Evaluation is degraded by respiratory motion. Lungs: There is dense opacity within the right lower lobe. Scattered atelectasis / scarring. Pleura: Unremarkable Heart/Great vessels: No cardiomegaly or pericardial effusion. The aorta is unremarkable. Mediastinum: Borderline mediastinal nodes, possibly reactive. Soft tissues/Bones: Bilateral breast implants. Upper abdomen: The partially visualized upper abdomen is within normal limits. IMPRESSION: 1. Dense right lower lobe opacities suggesting infectious/inflammatory process in the appropriate clinical setting. Posttreatment follow-up is suggested to ensure appropriate resolution.
[2025-08-19 12:32] LABS: Base Excess 0.8 mmol/L (-2.0-3.0)
[2025-08-19 13:02] LABS: Hepatitis B Surface Antigen Negative (Negative)
[2025-08-19 13:23] LABS: Hepatitis C Antibody Negative (Negative)
[2025-08-20] VITALS (8 sets, daily range): BP systolic 106–121; BP diastolic 68–82; PULSE 79–100; RESP 16–19; TEMP 97.8–99.8; O2SAT 94–99
--- NOTE | 2025-08-20 09:41 | DVHPN2 ---
Reviewed: Care Plan, H&P, Labs, Medications, Previous Orders, Radiology Changes from previous H/P or p: No Changes Eyes: No Pain, No Vision change, No Conjunctivae inflammation, No Eyelid inflammation, No Other, No Redness ENT: No Ear pain, No Ear discharge, No Nose pain, No Nose discharge, No Nose congestion, No Mouth pain, No Mouth swelling; Throat pain; No Throat swelling, No Other Cardiovascular: No Chest Pain, No Palpitations, No Orthopnea, No Paroxysmal Noc. Dyspnea, No Edema, No Lt Headedness, No Other Respiratory: No Cough, No Dry, No Shortness of breath, No SOB with excertion, No Wheezing, No Hemoptysis, No Pleuritic Pain, No Sputum, No Other Gastrointestinal: No Nausea, No Vomiting, No Abdominal Pain, No Diarrhea, No Constipation, No Melena, No Hematochezia, No Other Genitourinary: Dysuria, Frequency; No Incontinence, No Hematuria, No Retention, No Other Musculoskeletal: No other, No neck pain, No shoulder pain, No arm pain, No back pain, No hand pain, No leg pain, No foot pain Skin: No Rash, No Lesions, No Jaundice, No Bruising, No Other Objective Vitals Vital Signs Date Time Temp Pulse Resp B/P (MAP) Pulse Ox O2 Delivery O2 Flow Rate FiO2 08/20/25 05:00 99.5 100 19 119/75 (90) 98 99.5 08/19/25 20:00 Nasal Cannula* 3 32 Intake/Output Intake and Output 08/20/25 07:00 Intake Total 950 ml Balance 950 ml Intake Oral 800 ml IV Total 150 ml # Voids 3 Medications Current Medications Medications Dose Ordered Sig/Marika Route Start Time Stop Time Status Last Admin Dose Admin Acetaminophen/ Hydrocodone Bitart 1 tab Q4HP PRN PO 08/17/25 21:45 08/19/25 20:10 1 TAB Ondansetron HCl 4 mg Q4HP PRN IV 08/17/25 21:45 08/18/25 18:48 4 MG Docusate Sodium 100 mg BIDPRN PRN PO 08/17/25 21:45 Enoxaparin Sodium 40 mg DAILY SC 08/18/25 10:00 08/20/25 08:25 40 MG Acetaminophen 650 mg Q6HP PRN PO 08/17/25 21:45 08/19/25 05:03 650 MG Nitroglycerin 0.4 mg Q5MINP PRN SL 08/17/25 21:45 Morphine Sulfate 2 mg Q30M PRN IV 08/17/25 21:45 Famotidine 20 mg BID PO 08/17/25 22:00 08/20/25 08:25 20 MG Ceftriaxone Sodium 50 ml @ 100 mls/hr DAILY@09 IV 08/19/25 09:00 08/20/25 08:29 100 MLS/HR Trazodone HCl 100 mg HS PO 08/18/25 22:00 08/19/25 21:56 100 MG Paroxetine HCl 40 mg DAILY PO 08/19/25 10:00 08/20/25 08:25 40 MG Guaifenesin/ Dextromethorphan 10 ml TID PO 08/18/25 14:00 08/20/25 06:56 10 ML Morphine Sulfate 2 mg Q4HPRN PRN IV 08/18/25 18:45 08/20/25 04:24 2 MG Doxycycline Hyclate 100 ml @ 50 mls/hr Q12H IV 08/19/25 10:45 08/19/25 21:57 50 MLS/HR Laboratory Results Laboratory Tests 08/19/25 06:38 Urinalysis Test 08/17/25 20:26 Urine Color Yellow (Yellow) Urine Clarity Turbid (Clear) H Urine pH 6.0 (5.0-9.0) Urine Specific [place] 1.023 (1.001-1.035) Urine Protein 1+ (Negative) H Urine Ketones Negative (Negative) Urine Blood Negative /uL (Negative) Urine Nitrite Negative (Negative) Urine Bilirubin Negative (Negative) Urine Urobilinogen 2 mg/dL (Negative) H Urine Leukocyte Esterase 2+ /uL (Negative) Urine RBC 3 /hpf (0 - 4) Urine Microscopic WBC 9 /HPF (0-5) H Urine Squamous Epithelial Cells Mod /hpf (<5) Urine Bacteria None seen /hpf (None Seen) Urine Mucus Few (None Seen) Urine Glucose Normal mg/dL (Normal) Blood Gas Results Test 08/19/25 12:25 Arterial Blood pH 7.361 (7.350-7.450) FiO2 % 21.0 Microbiology Microbiology Date/Time Source Procedure Growth Status 08/17/25 20:26 Voided Urine Urine Culture - Preliminary Resulted 08/17/25 20:03 Blood Blood Culture - Preliminary NO GROWTH AFTER 48 HOURS OF INCUBATION. Resulted Labs and/or images reviewed: Labs reviewed by me, Image(s) reviewed by me Assessment/Plan Assessment/Plan Sepsis secondary to urinary tract infection: Blood cultures negative, urine cultures mixed , continue Rocephin, Right Lower lobe pneumonia continue Rocephin doxycycline Transaminitis CT abdomen pelvis without contrast negative Anxiety Flu test negative Haylee test negative Time spent 45 minutes RN at bedside Plan discussed with: Patient My Orders Orders - EDWIGE CORTEZ MD Procedure Category Date Status Time Chest Without Contrast CT 08/19/25 Resulted 10:33 Doxycycline PHA 08/19/25 In Process 100mg/100ml 10:45 Abg W/ Co-Ox RT 08/19/25 Logged 11:00 Date of Service: Aug 20, 2025 Billing Provider: EDWIGE CORTEZ MD Common Visit Codes: [id number] INP/OBS CARE(HIGH) EDWIGE CORTEZ MD Aug 20, 2025 09:41
[2025-08-21] VITALS (7 sets, daily range): BP systolic 116–124; BP diastolic 61–78; PULSE 74–89; RESP 17–18; TEMP 97.7–98.5; O2SAT 95–99
--- NOTE | 2025-08-21 09:27 | DVHPN2 ---
Reviewed: Care Plan, H&P, Labs, Medications, Previous Orders, Radiology Changes from previous H/P or p: No Changes Eyes: No Pain, No Vision change, No Conjunctivae inflammation, No Eyelid inflammation, No Other, No Redness ENT: No Ear pain, No Ear discharge, No Nose pain, No Nose discharge, No Nose congestion, No Mouth pain, No Mouth swelling; Throat pain; No Throat swelling, No Other Cardiovascular: No Chest Pain, No Palpitations, No Orthopnea, No Paroxysmal Noc. Dyspnea, No Edema, No Lt Headedness, No Other Respiratory: No Cough, No Dry, No Shortness of breath, No SOB with excertion, No Wheezing, No Hemoptysis, No Pleuritic Pain, No Sputum, No Other Gastrointestinal: No Nausea, No Vomiting, No Abdominal Pain, No Diarrhea, No Constipation, No Melena, No Hematochezia, No Other Genitourinary: Dysuria, Frequency; No Incontinence, No Hematuria, No Retention, No Other Musculoskeletal: No other, No neck pain, No shoulder pain, No arm pain, No back pain, No hand pain, No leg pain, No foot pain Skin: No Rash, No Lesions, No Jaundice, No Bruising, No Other Objective Vitals Vital Signs Date Time Temp Pulse Resp B/P (MAP) Pulse Ox O2 Delivery O2 Flow Rate FiO2 08/21/25 09:00 97.7 83 18 123/64 (83) 99 97.7 08/20/25 20:00 Nasal Cannula* 3 32 Intake/Output Intake and Output 08/21/25 07:00 Intake Total 1340 ml Balance 1340 ml Intake Oral 1090 ml IV Total 250 ml # Voids 4 Medications Current Medications Medications Dose Ordered Sig/Marika Route Start Time Stop Time Status Last Admin Dose Admin Acetaminophen/ Hydrocodone Bitart 1 tab Q4HP PRN PO 08/17/25 21:45 08/19/25 20:10 1 TAB Ondansetron HCl 4 mg Q4HP PRN IV 08/17/25 21:45 08/18/25 18:48 4 MG Docusate Sodium 100 mg BIDPRN PRN PO 08/17/25 21:45 Enoxaparin Sodium 40 mg DAILY SC 08/18/25 10:00 08/20/25 08:25 40 MG Acetaminophen 650 mg Q6HP PRN PO 08/17/25 21:45 08/21/25 02:49 650 MG Nitroglycerin 0.4 mg Q5MINP PRN SL 08/17/25 21:45 Morphine Sulfate 2 mg Q30M PRN IV 08/17/25 21:45 Famotidine 20 mg BID PO 08/17/25 22:00 08/20/25 22:06 20 MG Ceftriaxone Sodium 50 ml @ 100 mls/hr DAILY@09 IV 08/19/25 09:00 08/20/25 08:29 100 MLS/HR Trazodone HCl 100 mg HS PO 08/18/25 22:00 08/20/25 22:08 100 MG Paroxetine HCl 40 mg DAILY PO 08/19/25 10:00 08/20/25 08:25 40 MG Guaifenesin/ Dextromethorphan 10 ml TID PO 08/18/25 14:00 08/21/25 05:27 10 ML Morphine Sulfate 2 mg Q4HPRN PRN IV 08/18/25 18:45 08/20/25 16:44 2 MG Doxycycline Hyclate 100 ml @ 50 mls/hr Q12H IV 08/19/25 10:45 08/20/25 22:12 50 MLS/HR Laboratory Results Laboratory Tests 08/19/25 06:38 Urinalysis Test 08/17/25 20:26 Urine Color Yellow (Yellow) Urine Clarity Turbid (Clear) H Urine pH 6.0 (5.0-9.0) Urine Specific [place] 1.023 (1.001-1.035) Urine Protein 1+ (Negative) H Urine Ketones Negative (Negative) Urine Blood Negative /uL (Negative) Urine Nitrite Negative (Negative) Urine Bilirubin Negative (Negative) Urine Urobilinogen 2 mg/dL (Negative) H Urine Leukocyte Esterase 2+ /uL (Negative) Urine RBC 3 /hpf (0 - 4) Urine Microscopic WBC 9 /HPF (0-5) H Urine Squamous Epithelial Cells Mod /hpf (<5) Urine Bacteria None seen /hpf (None Seen) Urine Mucus Few (None Seen) Urine Glucose Normal mg/dL (Normal) Microbiology Microbiology Date/Time Source Procedure Growth Status 08/17/25 20:26 Voided Urine Urine Culture - Final Complete 08/17/25 20:03 Blood Blood Culture - Preliminary NO GROWTH AFTER 72 HOURS OF INCUBATION. Resulted Labs and/or images reviewed: Labs reviewed by me, Image(s) reviewed by me Assessment/Plan Assessment/Plan Sepsis secondary to urinary tract infection: Blood cultures negative, urine cultures mixed , continue Rocephin, Right Lower lobe pneumonia continue Rocephin doxycycline Transaminitis CT abdomen pelvis without contrast negative Anxiety Flu test negative Haylee test negative Time spent 48 minutes RN at bedside Plan discussed with: Patient Date of Service: Aug 21, 2025 Billing Provider: EDWIGE CORTEZ MD Common Visit Codes: [id number] INP/OBS CARE(HIGH) EDWIGE CORTEZ MD Aug 21, 2025 09:26
[2025-08-22] VITALS (16 sets, daily range): BP systolic 98–134; BP diastolic 67–95; PULSE 73–99; RESP 16–19; TEMP 97.7–99.7; O2SAT 94–100
--- NOTE | 2025-08-22 09:41 | DVHPN2 ---
Reviewed: Care Plan, H&P, Labs, Medications, Previous Orders, Radiology Changes from previous H/P or p: No Changes Eyes: No Pain, No Vision change, No Conjunctivae inflammation, No Eyelid inflammation, No Other, No Redness ENT: No Ear pain, No Ear discharge, No Nose pain, No Nose discharge, No Nose congestion, No Mouth pain, No Mouth swelling; Throat pain; No Throat swelling, No Other Cardiovascular: No Chest Pain, No Palpitations, No Orthopnea, No Paroxysmal Noc. Dyspnea, No Edema, No Lt Headedness, No Other Respiratory: No Cough, No Dry, No Shortness of breath, No SOB with excertion, No Wheezing, No Hemoptysis, No Pleuritic Pain, No Sputum, No Other Gastrointestinal: No Nausea, No Vomiting, No Abdominal Pain, No Diarrhea, No Constipation, No Melena, No Hematochezia, No Other Genitourinary: Dysuria, Frequency; No Incontinence, No Hematuria, No Retention, No Other Musculoskeletal: No other, No neck pain, No shoulder pain, No arm pain, No back pain, No hand pain, No leg pain, No foot pain Skin: No Rash, No Lesions, No Jaundice, No Bruising, No Other Objective Vitals Vital Signs Date Time Temp Pulse Resp B/P (MAP) Pulse Ox O2 Delivery O2 Flow Rate FiO2 08/22/25 08:38 98.1 74 16 104/73 (83) 94 98.1 08/21/25 20:00 Nasal Cannula* 3 32 Intake/Output Intake and Output 08/22/25 07:00 Intake Total 1990 ml Balance 1990 ml Intake Oral 1740 ml IV Total 250 ml # Voids 6 Medications Current Medications Medications Dose Ordered Sig/Marika Route Start Time Stop Time Status Last Admin Dose Admin Acetaminophen/ Hydrocodone Bitart 1 tab Q4HP PRN PO 08/17/25 21:45 08/19/25 20:10 1 TAB Ondansetron HCl 4 mg Q4HP PRN IV 08/17/25 21:45 08/18/25 18:48 4 MG Docusate Sodium 100 mg BIDPRN PRN PO 08/17/25 21:45 Enoxaparin Sodium 40 mg DAILY SC 08/18/25 10:00 08/22/25 09:10 40 MG Acetaminophen 650 mg Q6HP PRN PO 08/17/25 21:45 08/21/25 02:49 650 MG Nitroglycerin 0.4 mg Q5MINP PRN SL 08/17/25 21:45 Morphine Sulfate 2 mg Q30M PRN IV 08/17/25 21:45 Famotidine 20 mg BID PO 08/17/25 22:00 08/22/25 09:10 20 MG Ceftriaxone Sodium 50 ml @ 100 mls/hr DAILY@09 IV 08/19/25 09:00 08/22/25 09:01 100 MLS/HR Trazodone HCl 100 mg HS PO 08/18/25 22:00 08/21/25 22:08 100 MG Paroxetine HCl 40 mg DAILY PO 08/19/25 10:00 08/22/25 09:10 40 MG Guaifenesin/ Dextromethorphan 10 ml TID PO 08/18/25 14:00 08/22/25 05:15 10 ML Morphine Sulfate 2 mg Q4HPRN PRN IV 08/18/25 18:45 08/21/25 15:03 2 MG Doxycycline Hyclate 100 ml @ 50 mls/hr Q12H IV 08/19/25 10:45 08/21/25 22:10 50 MLS/HR Laboratory Results Laboratory Tests 08/19/25 06:38 Urinalysis Test 08/17/25 20:26 Urine Color Yellow (Yellow) Urine Clarity Turbid (Clear) H Urine pH 6.0 (5.0-9.0) Urine Specific [place] 1.023 (1.001-1.035) Urine Protein 1+ (Negative) H Urine Ketones Negative (Negative) Urine Blood Negative /uL (Negative) Urine Nitrite Negative (Negative) Urine Bilirubin Negative (Negative) Urine Urobilinogen 2 mg/dL (Negative) H Urine Leukocyte Esterase 2+ /uL (Negative) Urine RBC 3 /hpf (0 - 4) Urine Microscopic WBC 9 /HPF (0-5) H Urine Squamous Epithelial Cells Mod /hpf (<5) Urine Bacteria None seen /hpf (None Seen) Urine Mucus Few (None Seen) Urine Glucose Normal mg/dL (Normal) Microbiology Microbiology Date/Time Source Procedure Growth Status 08/17/25 20:26 Voided Urine Urine Culture - Final Complete 08/17/25 20:03 Blood Blood Culture - Preliminary NO GROWTH AFTER 72 HOURS OF INCUBATION. Resulted Assessment/Plan Assessment/Plan Sepsis secondary to urinary tract infection: Blood cultures negative, urine cultures mixed , continue Rocephin, Right Lower lobe pneumonia continue Rocephin doxycycline Transaminitis CT abdomen pelvis without contrast negative Anxiety Flu test negative Hayele test negative Time spent 48 minutes RN at bedside Still not feeling better. Pulmonary consult for Dr. Banerjee Plan discussed with: Patient Date of Service: Aug 22, 2025 Billing Provider: EDWIGE CORTEZ MD Common Visit Codes: [id number] INP/OBS CARE(HIGH) EDWIGE CORTEZ MD Aug 22, 2025 09:41
[2025-08-22] MEDS: ALBUTEROL SULF 2.5 MG/0.5ML(0.5%) NEB SOLN NEB SCH (10:39)
[2025-08-22] MEDS: IPRATROPIUM BROM 0.5 MG/2.5ML INH SOL NEB SCH (10:39)
[2025-08-22] MEDS: methylPREDNISolone SOD SUCC 125 MG/2 ML VL IV SCH (14:09)
--- NOTE | 2025-08-22 23:35 | DVHINCON2 ---
Date of service: Aug 22, [address] Roberson Reason for Consultation Evaluation for bronchoscopy History of Present Illness A 49-year-old woman with past medical history of generalized anxiety disorder, poor medical followup, who presented to ED on 08/17/25 with complaint of flu- like symptoms, reporting intermittent fever, generalized muscle and joint pain causing difficulty ambulating, throat pain, and nocturnal polyuria for the past 2 months; temperature in ED of 103 degrees Fahrenheit with flu-like symptoms. Patient was admitted for further care. Pulmonary consultation is requested for evaluation and management of acute hypoxic respiratory failure and evaluation for bronchoscopy. Review of Systems: 14-point review of systems negative unless otherwise noted above. Past Medical History: Anxiety Past Surgical History: None Medications: Reviewed. Allergies: No known drug allergies. Family History: No family history of premature CAD. No family history of lung disorders. Social History: Nonsmoker. No alcohol or illicit drug use. Family History: Cardiovascular disease G8 FATHER Diabetes mellitus G8 FATHER Allergies: Coded Allergies: NO KNOWN ALLERGIES (Unverified , 08/17/25) Home Meds Reported Medications Paroxetine (PAXIL TABLET) 20 Mg Tb, 40 MG GT for 30 Days 08/17/25 Trazodone Hcl (Trazodone Hcl) 100 Mg Tab, 100 MG PO, MG 08/17/25 Current Medications Current Medications Medications (Trade) Dose Ordered Sig/Marika Route PRN Reason Start Time Stop Time Status Last Admin Albuterol (Ventolin Medneb) 2.5 mg Q4HR NEB 08/22/25 10:00 08/22/25 22:36 Ipratropium [place] (Atrovent Medneb) 0.5 mg Q4HR NEB 08/22/25 10:00 08/22/25 22:36 Methylprednisolone Sodium Succinate (Solu Medrol) 60 mg Q8HR IV 08/22/25 14:00 08/22/25 21:08 Vital Signs Vital Signs Date Time Temp Pulse Resp B/P (MAP) Pulse Ox O2 Delivery O2 Flow Rate FiO2 08/22/25 21:00 98.9 90 16 123/76 (92) 95 98.9 08/22/25 20:00 Nasal Cannula* 3 32 Physical Exam Gen.: Patient lying in bed in no apparent distress. On supplemental oxygen. Head: Normocephalic, atraumatic. Eyes: EOMI/PERRLA. Ears: Normal hearing. Normal anatomy. Neck/trachea: Trachea midline, supple. Nose: Normal external anatomy. Mouth: Moist mucous membranes. Chest: Decreased air entry bilaterally. No wheezing or rhonchi. Cardiovascular: Positive S1, positive S2. Regular rate and rhythm. Abdomen: Positive bowel sounds in all 4 quadrants. Soft, non-tender, non- distended. : Deferred. Rectal: Deferred. Skin: Warm, dry. Intact. Extremities: 2+ radial pulses bilaterally. No lower extremity edema. Neuro: Awake, alert, oriented x3. No gross motor or sensory deficits. Cranial nerves II through XII intact. Gait not assessed. Labs/Diagnostic Data Labs Test 08/19/25 12:25 08/19/25 06:38 08/18/25 04:41 08/17/25 23:30 Range/Units Blood Gas Specimen Type Arterial Blood Gas Sample Site Left radial Blood Gas Patient Temperature 37.0 Arterial Blood Date Drawn [id number] Arterial Blood pH 7.361 7.350-7.450 Arterial Blood Partial Pressure CO2 48.5 H 32.0-45.0 mmHg Arterial Blood Partial Pressure O2 53.6 *L 83.0-108.0 mmHg Arterial Blood HCO3 26.8 21.0-28.0 mmol/L Arterial Blood Oxygen Saturation 87.5 L 94.0-98.0 % Arterial Blood Base Excess 0.8 -2.0-3.0 mmol/L Arterial Blood Oxyhemoglobin 86.6 L 94.0-98.0 % Arterial Blood Carboxyhemoglobin 0.7 0.5-1.5 % Arterial Blood Methemoglobin 0.3 0.0-1.5 % Arterial Blood Deoxyhemoglobin 12.4 H 0.0-5.0 % Wisam Test Yes Blood Gas Total Hemoglobin 13.00 12.0-16.0 g/dL Blood Gas Modality Room air FiO2 % 21.0 Blood Gas Critical Value Read Back Yes Blood Gas Notified Whom Dr. tobin roberson Blood Gas Notified Time [id number] Blood Gas Notified By White Blood Count 10.2 4.4-10.8 10^3/uL Red Blood Count 4.24 4.0-5.20 10^6/uL Hemoglobin 12.1 L 12.2-16.2 g/dL Hematocrit 36.0 36.0-46.0 % Mean Corpuscular Volume 84.9 80.0-100.0 fL Mean Corpuscular Hemoglobin 28.5 28.0-32.0 pg Mean Corpuscular Hemoglobin Concent 33.5 32.0-36.0 g/dL Red Cell Distribution Width 13.1 11.8-14.3 % Platelet Count 240 140-450 10^3/uL Mean Platelet Volume 8.7 6.9-10.8 fL Neutrophils (%) (Auto) 71.5 37.0-80.0 % Lymphocytes (%) (Auto) 18.3 10.0-50.0 % Monocytes (%) (Auto) 8.9 0.0-12.0 % Eosinophils (%) (Auto) 1.0 0.0-7.0 % Basophils (%) (Auto) 0.3 0.0-2.0 % Neutrophils # (Auto) 7.3 1.6-8.6 10 ^3/uL Lymphocytes # (Auto) 1.9 0.4-5.4 10 ^3/uL Monocytes # (Auto) 0.9 0-1.3 10 ^3/uL Eosinophils # (Auto) 0.1 0-0.8 10 ^3/uL Basophils # (Auto) 0 0-0.2 10 ^3/uL Nucleated Red Blood Cells 0.1 % Sodium Level 137 136-145 mmol/L Potassium Level 4.1 3.5-5.1 mmol/L Chloride Level 102 98-107 mmol/L Carbon Dioxide Level 28 20-31 mmol/L Anion Gap 7 5-15 Blood Urea Nitrogen 8 L 9-23 mg/dL Creatinine 0.88 0.550-1.02 mg/dL Glomerular Filtration Rate Calc 80 >90 mL/min BUN/Creatinine Ratio 9.1 L 10.0-20.0 Serum Glucose 109 H 74-106 mg/dL Calcium Level 8.7 8.7-10.4 mg/dL Total Bilirubin 0.5 0.2-1.0 mg/dL Aspartate Amino Transferase (AST) 24 13-40 U/L Alanine Aminotransferase (ALT) 44 H 7-40 U/L Alkaline Phosphatase 199 H 46-116 U/L Total Protein 6.4 5.7-8.2 g/dL Albumin 3.7 3.2-4.8 g/dL Hepatitis B Surface Antigen Negative Negative Hepatitis C Antibody Negative Negative SARS-CoV-2 Antigen (Rapid) Negative NEGATIVE Test 08/17/25 20:26 08/17/25 20:07 08/17/25 20:01 Range/Units Urine Color Yellow Yellow Urine Clarity Turbid H Clear Urine pH 6.0 5.0-9.0 Urine Specific [place] 1.023 1.001-1.035 Urine Protein 1+ H Negative Urine Ketones Negative Negative Urine Blood Negative Negative /uL Urine Nitrite Negative Negative Urine Bilirubin Negative Negative Urine Urobilinogen 2 H Negative mg/dL Urine Leukocyte Esterase 2+ Negative /uL Urine RBC 3 0 - 4 /hpf Urine Microscopic WBC 9 H 0-5 /HPF Urine Squamous Epithelial Cells Mod <5 /hpf Urine Bacteria None seen None Seen /hpf Urine Mucus Few None Seen Urine Glucose Normal Normal mg/dL Influenza Type A Antigen Negative Negative Influenza Type B Antigen Negative Negative Hemoglobin A1c 5.6 <5.7 % A1C Lactic Acid Level 1.2 0.4-2.0 mmol/L Beta HCG, Quantitative 1.3 L 1.5-4.2 mIU/mL Microbiology Date/Time Source Procedure Growth Status 08/17/25 20:26 Voided Urine Urine Culture - Final Complete 08/17/25 20:03 Blood Blood Culture - Final NO GROWTH AFTER 5 DAYS OF INCUBATION. Complete Assessment Impression: Acute hypoxic respiratory failure Dependence on supplemental oxygen Right lower lobe pneumonia Sepsis secondary to urinary tract infection Transaminitis Obesity Plan: Supplemental oxygen Titrate to keep O2 sats above 92%. Taper O2 as tolerated. CXR reveals no acute cardiopulmonary disease. Chest CT reviewed, demonstrates: Scattered atelectasis / scarring. Borderline mediastinal nodes, possibly reactive. Dense right lower lobe opacities suggesting infectious/inflammatory process in the appropriate clinical setting. Flu test negative Gena test negative Continue antibiotics Blood cultures negative, urine cultures mixed. Monitor renal function. Monitor electrolytes. Supplement as necessary. Monitor ins and outs. Recommend diet and lifestyle modifications for weight reduction Obesity complicates all care DVT prophylaxis. Prognosis: Poor given patient's multiple co-morbidities. Rest of plan per hospitalist and other consultants. Thank you, Dr. Roberson, for allowing me to participate in this patient's care. Further recommendations will depend on the patient's clinical course. Please do not hesitate to contact me if you have any questions or concerns. This medical document was created using an electronic medical record system with Dragon computerized dictation system. Although these documentations are being carefully reviewed, there may still be some phonetic and typographical changes. The errors are purely typographical, due to imperfection on the software program, and do not reflect any compromise in the patient's medical care. Plan discussed with: Other (RN/Dr. Roberson) Visit Coding Pulmonary Billing Provider: SUNDAY DESIR MD Date of Service if different f: Aug 22, 2025 Common Visit Codes: [id number] INP/OBS CARE (HIGH) SUNDAY DESIR MD Aug 22, 2025 23:35
[2025-08-23] VITALS (22 sets, daily range): BP systolic 101–122; BP diastolic 61–76; PULSE 68–105; RESP 16–20; TEMP 97.8–98.6; O2SAT 93–100
--- NOTE | 2025-08-23 10:02 | DVHPN2 ---
Reviewed: Care Plan, H&P, Labs, Medications, Previous Orders, Radiology Changes from previous H/P or p: No Changes Eyes: No Pain, No Vision change, No Conjunctivae inflammation, No Eyelid inflammation, No Other, No Redness ENT: No Ear pain, No Ear discharge, No Nose pain, No Nose discharge, No Nose congestion, No Mouth pain, No Mouth swelling; Throat pain; No Throat swelling, No Other Cardiovascular: No Chest Pain, No Palpitations, No Orthopnea, No Paroxysmal Noc. Dyspnea, No Edema, No Lt Headedness, No Other Respiratory: No Cough, No Dry, No Shortness of breath, No SOB with excertion, No Wheezing, No Hemoptysis, No Pleuritic Pain, No Sputum, No Other Gastrointestinal: No Nausea, No Vomiting, No Abdominal Pain, No Diarrhea, No Constipation, No Melena, No Hematochezia, No Other Genitourinary: Dysuria, Frequency; No Incontinence, No Hematuria, No Retention, No Other Musculoskeletal: No other, No neck pain, No shoulder pain, No arm pain, No back pain, No hand pain, No leg pain, No foot pain Skin: No Rash, No Lesions, No Jaundice, No Bruising, No Other Objective Vitals Vital Signs Date Time Temp Pulse Resp B/P (MAP) Pulse Ox O2 Delivery O2 Flow Rate FiO2 08/23/25 09:00 98.5 73 16 101/68 (79) 95 98.5 08/23/25 08:10 Nasal Cannula* 3 32 Intake/Output Intake and Output 08/23/25 07:00 Intake Total 1350 ml Balance 1350 ml Intake Oral 1100 ml IV Total 250 ml # Voids 4 Medications Current Medications Medications Dose Ordered Sig/Marika Route Start Time Stop Time Status Last Admin Dose Admin Acetaminophen/ Hydrocodone Bitart 1 tab Q4HP PRN PO 08/17/25 21:45 08/23/25 09:36 1 TAB Ondansetron HCl 4 mg Q4HP PRN IV 08/17/25 21:45 08/18/25 18:48 4 MG Docusate Sodium 100 mg BIDPRN PRN PO 08/17/25 21:45 Enoxaparin Sodium 40 mg DAILY SC 08/18/25 10:00 08/23/25 09:37 40 MG Acetaminophen 650 mg Q6HP PRN PO 08/17/25 21:45 08/21/25 02:49 650 MG Nitroglycerin 0.4 mg Q5MINP PRN SL 08/17/25 21:45 Morphine Sulfate 2 mg Q30M PRN IV 08/17/25 21:45 Famotidine 20 mg BID PO 08/17/25 22:00 08/23/25 09:35 20 MG Ceftriaxone Sodium 50 ml @ 100 mls/hr DAILY@09 IV 08/19/25 09:00 08/23/25 09:28 100 MLS/HR Trazodone HCl 100 mg HS PO 08/18/25 22:00 08/22/25 21:08 100 MG Paroxetine HCl 40 mg DAILY PO 08/19/25 10:00 08/23/25 09:41 40 MG Guaifenesin/ Dextromethorphan 10 ml TID PO 08/18/25 14:00 08/23/25 05:44 10 ML Morphine Sulfate 2 mg Q4HPRN PRN IV 08/18/25 18:45 08/21/25 15:03 2 MG Doxycycline Hyclate 100 ml @ 50 mls/hr Q12H IV 08/19/25 10:45 08/22/25 21:40 50 MLS/HR Albuterol 2.5 mg Q4HR NEB 08/22/25 10:00 08/23/25 07:23 2.5 MG Ipratropium [place] 0.5 mg Q4HR NEB 08/22/25 10:00 08/23/25 07:23 0.5 MG Methylprednisolone Sodium Succinate 60 mg Q8HR IV 08/22/25 14:00 08/23/25 05:44 60 MG Laboratory Results Laboratory Tests 08/19/25 06:38 Urinalysis Test 08/17/25 20:26 Urine Color Yellow (Yellow) Urine Clarity Turbid (Clear) H Urine pH 6.0 (5.0-9.0) Urine Specific [place] 1.023 (1.001-1.035) Urine Protein 1+ (Negative) H Urine Ketones Negative (Negative) Urine Blood Negative /uL (Negative) Urine Nitrite Negative (Negative) Urine Bilirubin Negative (Negative) Urine Urobilinogen 2 mg/dL (Negative) H Urine Leukocyte Esterase 2+ /uL (Negative) Urine RBC 3 /hpf (0 - 4) Urine Microscopic WBC 9 /HPF (0-5) H Urine Squamous Epithelial Cells Mod /hpf (<5) Urine Bacteria None seen /hpf (None Seen) Urine Mucus Few (None Seen) Urine Glucose Normal mg/dL (Normal) Microbiology Microbiology Date/Time Source Procedure Growth Status 08/17/25 20:26 Voided Urine Urine Culture - Final Complete 08/17/25 20:03 Blood Blood Culture - Final NO GROWTH AFTER 5 DAYS OF INCUBATION. Complete Labs and/or images reviewed: Labs reviewed by me, Image(s) reviewed by me Assessment/Plan Assessment/Plan Sepsis secondary to urinary tract infection: Blood cultures negative, urine cultures mixed , continue Rocephin, Right Lower lobe pneumonia continue Rocephin doxycycline, pulmonary consult by Dr. Banerjee appreciated albuterol Atrovent Solu-Medrol Transaminitis CT abdomen pelvis without contrast negative Anxiety Flu test negative Haylee test negative Time spent 48 minutes RN Don at bedside Plan discussed with: Patient Date of Service: Aug 23, 2025 Billing Provider: EDWIGE CORTEZ MD Common Visit Codes: [id number] INP/OBS CARE(HIGH) EDWIGE CORTEZ MD Aug 23, 2025 10:02
--- NOTE | 2025-08-23 22:12 | DVHPN2 ---
Subjective DOS: 08/23/2025 Patient seen and examined at bedside. Remains on supplemental oxygen Overnight events reviewed. Reviewed: Care Plan, H&P, Labs, Medications, Previous Orders, Radiology Changes from previous H/P or p: No Changes Eyes: No Pain, No Vision change, No Conjunctivae inflammation, No Eyelid inflammation, No Other, No Redness ENT: No Ear pain, No Ear discharge, No Nose pain, No Nose discharge, No Nose congestion, No Mouth pain, No Mouth swelling; Throat pain; No Throat swelling, No Other Cardiovascular: No Chest Pain, No Palpitations, No Orthopnea, No Paroxysmal Noc. Dyspnea, No Edema, No Lt Headedness, No Other Respiratory: No Cough, No Dry, No Shortness of breath, No SOB with excertion, No Wheezing, No Hemoptysis, No Pleuritic Pain, No Sputum, No Other Gastrointestinal: No Nausea, No Vomiting, No Abdominal Pain, No Diarrhea, No Constipation, No Melena, No Hematochezia, No Other Genitourinary: Dysuria, Frequency; No Incontinence, No Hematuria, No Retention, No Other Musculoskeletal: No other, No neck pain, No shoulder pain, No arm pain, No back pain, No hand pain, No leg pain, No foot pain Skin: No Rash, No Lesions, No Jaundice, No Bruising, No Other Objective Vitals Vital Signs Date Time Temp Pulse Resp B/P (MAP) Pulse Ox O2 Delivery O2 Flow Rate FiO2 08/23/25 21:00 98.6 93 18 109/71 (84) 95 98.6 08/23/25 19:28 Nasal Cannula 2.0 08/23/25 19:28 28 Intake/Output Intake and Output 08/23/25 07:00 Intake Total 1350 ml Balance 1350 ml Intake Oral 1100 ml IV Total 250 ml # Voids 4 Exam Gen.: Patient lying in bed in no apparent distress. On supplemental oxygen. Head: Normocephalic, atraumatic. Eyes: EOMI/PERRLA. Ears: Normal hearing. Normal anatomy. Neck/trachea: Trachea midline, supple. Nose: Normal external anatomy. Mouth: Moist mucous membranes. Chest: Decreased air entry bilaterally. No wheezing or rhonchi. Cardiovascular: Positive S1, positive S2. Regular rate and rhythm. Abdomen: Positive bowel sounds in all 4 quadrants. Soft, non-tender, non- distended. : Deferred. Rectal: Deferred. Skin: Warm, dry. Intact. Extremities: 2+ radial pulses bilaterally. No lower extremity edema. Neuro: Awake, alert, oriented x3. No gross motor or sensory deficits. Cranial nerves II through XII intact. Gait not assessed. Medications Current Medications Medications Dose Ordered Sig/Marika Route Start Time Stop Time Status Last Admin Dose Admin Acetaminophen/ Hydrocodone Bitart 1 tab Q4HP PRN PO 08/17/25 21:45 08/23/25 09:36 1 TAB Ondansetron HCl 4 mg Q4HP PRN IV 08/17/25 21:45 08/18/25 18:48 4 MG Docusate Sodium 100 mg BIDPRN PRN PO 08/17/25 21:45 Enoxaparin Sodium 40 mg DAILY SC 08/18/25 10:00 08/23/25 09:37 40 MG Acetaminophen 650 mg Q6HP PRN PO 08/17/25 21:45 08/21/25 02:49 650 MG Nitroglycerin 0.4 mg Q5MINP PRN SL 08/17/25 21:45 Morphine Sulfate 2 mg Q30M PRN IV 08/17/25 21:45 Famotidine 20 mg BID PO 08/17/25 22:00 08/23/25 09:35 20 MG Ceftriaxone Sodium 50 ml @ 100 mls/hr DAILY@09 IV 08/19/25 09:00 08/23/25 09:28 100 MLS/HR Trazodone HCl 100 mg HS PO 08/18/25 22:00 08/22/25 21:08 100 MG Paroxetine HCl 40 mg DAILY PO 08/19/25 10:00 08/23/25 09:41 40 MG Guaifenesin/ Dextromethorphan 10 ml TID PO 08/18/25 14:00 08/23/25 13:43 10 ML Morphine Sulfate 2 mg Q4HPRN PRN IV 08/18/25 18:45 08/21/25 15:03 2 MG Doxycycline Hyclate 100 ml @ 50 mls/hr Q12H IV 08/19/25 10:45 08/23/25 13:43 50 MLS/HR Albuterol 2.5 mg Q4HR NEB 08/22/25 10:00 08/23/25 19:29 2.5 MG Ipratropium [place] 0.5 mg Q4HR NEB 08/22/25 10:00 08/23/25 19:28 0.5 MG Methylprednisolone Sodium Succinate 60 mg Q8HR IV 08/22/25 14:00 08/23/25 13:43 60 MG Laboratory Results Laboratory Tests 08/19/25 06:38 Urinalysis Test 08/17/25 20:26 Urine Color Yellow (Yellow) Urine Clarity Turbid (Clear) H Urine pH 6.0 (5.0-9.0) Urine Specific [place] 1.023 (1.001-1.035) Urine Protein 1+ (Negative) H Urine Ketones Negative (Negative) Urine Blood Negative /uL (Negative) Urine Nitrite Negative (Negative) Urine Bilirubin Negative (Negative) Urine Urobilinogen 2 mg/dL (Negative) H Urine Leukocyte Esterase 2+ /uL (Negative) Urine RBC 3 /hpf (0 - 4) Urine Microscopic WBC 9 /HPF (0-5) H Urine Squamous Epithelial Cells Mod /hpf (<5) Urine Bacteria None seen /hpf (None Seen) Urine Mucus Few (None Seen) Urine Glucose Normal mg/dL (Normal) Microbiology Microbiology Date/Time Source Procedure Growth Status 08/17/25 20:26 Voided Urine Urine Culture - Final Complete 08/17/25 20:03 Blood Blood Culture - Final NO GROWTH AFTER 5 DAYS OF INCUBATION. Complete Assessment/Plan Assessment/Plan Impression: Acute hypoxic respiratory failure Dependence on supplemental oxygen Right lower lobe pneumonia Sepsis secondary to urinary tract infection Transaminitis Obesity Events: Remains on supplemental oxygen, 3 LPM NC Taper O2 as tolerated Continue bronchodilators Continue steroids Continue antibiotics Pain control Avoid oversedation Pepcid for GI ppx Lovenox for DVT ppx Labs and imaging reviewed. Rest of plan as noted below. Plan: Supplemental oxygen Titrate to keep O2 sats above 92%. CXR reveals no acute cardiopulmonary disease. Chest CT reviewed, demonstrates: Scattered atelectasis / scarring. Borderline mediastinal nodes, possibly reactive. Dense right lower lobe opacities suggesting infectious/inflammatory process in the appropriate clinical setting. Flu test negative Gena test negative Continue bronchodilators IV steroids Continue antibiotics Blood cultures negative, urine cultures mixed. Monitor renal function. Monitor electrolytes. Supplement as necessary. Monitor ins and outs. Recommend diet and lifestyle modifications for weight reduction Obesity complicates all care GI/DVT prophylaxis. Prognosis: Poor given patient's multiple co-morbidities. Rest of plan per hospitalist and other consultants. Thank you, Dr. Cabrera, for allowing me to participate in this patient's care. Further recommendations will depend on the patient's clinical course. Please do not hesitate to contact me if you have any questions or concerns. This medical document was created using an electronic medical record system with [employer] dictation system. Although these documentations are being carefully reviewed, there may still be some phonetic and typographical changes. The errors are purely typographical, due to imperfection on the software program, and do not reflect any compromise in the patient's medical care. Plan discussed with: Patient, Other (RN) Visit Coding Pulmonary Billing Provider: SUNDAY DESIR MD Date of Service if different f: Aug 23, 2025 Common Visit Codes: [id number] INP/OBS CARE(HIGH) SUNDAY DESIR MD Aug 23, 2025 22:12
[2025-08-24] VITALS (15 sets, daily range): BP systolic 108–145; BP diastolic 66–92; PULSE 71–104; RESP 18–21; TEMP 97–98.4; O2SAT 95–100
--- NOTE | 2025-08-24 09:57 | DVHPN2 ---
Reviewed: Care Plan, H&P, Labs, Medications, Previous Orders, Radiology Changes from previous H/P or p: No Changes Eyes: No Pain, No Vision change, No Conjunctivae inflammation, No Eyelid inflammation, No Other, No Redness ENT: No Ear pain, No Ear discharge, No Nose pain, No Nose discharge, No Nose congestion, No Mouth pain, No Mouth swelling; Throat pain; No Throat swelling, No Other Cardiovascular: No Chest Pain, No Palpitations, No Orthopnea, No Paroxysmal Noc. Dyspnea, No Edema, No Lt Headedness, No Other Respiratory: No Cough, No Dry, No Shortness of breath, No SOB with excertion, No Wheezing, No Hemoptysis, No Pleuritic Pain, No Sputum, No Other Gastrointestinal: No Nausea, No Vomiting, No Abdominal Pain, No Diarrhea, No Constipation, No Melena, No Hematochezia, No Other Genitourinary: Dysuria, Frequency; No Incontinence, No Hematuria, No Retention, No Other Musculoskeletal: No other, No neck pain, No shoulder pain, No arm pain, No back pain, No hand pain, No leg pain, No foot pain Skin: No Rash, No Lesions, No Jaundice, No Bruising, No Other Objective Vitals Vital Signs Date Time Temp Pulse Resp B/P (MAP) Pulse Ox O2 Delivery O2 Flow Rate FiO2 08/24/25 08:48 97.0 71 18 108/74 (85) 96 97.0 08/23/25 22:22 Nasal Cannula* 2 28 Intake/Output Intake and Output 08/24/25 07:00 Intake Total 2670 ml Balance 2670 ml Intake Oral 2520 ml IV Total 150 ml # Voids 6 Medications Current Medications Medications Dose Ordered Sig/Marika Route Start Time Stop Time Status Last Admin Dose Admin Acetaminophen/ Hydrocodone Bitart 1 tab Q4HP PRN PO 08/17/25 21:45 08/23/25 09:36 1 TAB Ondansetron HCl 4 mg Q4HP PRN IV 08/17/25 21:45 08/18/25 18:48 4 MG Docusate Sodium 100 mg BIDPRN PRN PO 08/17/25 21:45 Enoxaparin Sodium 40 mg DAILY SC 08/18/25 10:00 08/23/25 09:37 40 MG Acetaminophen 650 mg Q6HP PRN PO 08/17/25 21:45 08/21/25 02:49 650 MG Nitroglycerin 0.4 mg Q5MINP PRN SL 08/17/25 21:45 Morphine Sulfate 2 mg Q30M PRN IV 08/17/25 21:45 Famotidine 20 mg BID PO 08/17/25 22:00 08/23/25 22:04 20 MG Ceftriaxone Sodium 50 ml @ 100 mls/hr DAILY@09 IV 08/19/25 09:00 08/24/25 07:58 100 MLS/HR Trazodone HCl 100 mg HS PO 08/18/25 22:00 08/23/25 22:04 100 MG Paroxetine HCl 40 mg DAILY PO 08/19/25 10:00 08/23/25 09:41 40 MG Guaifenesin/ Dextromethorphan 10 ml TID PO 08/18/25 14:00 08/24/25 05:42 10 ML Morphine Sulfate 2 mg Q4HPRN PRN IV 08/18/25 18:45 08/21/25 15:03 2 MG Doxycycline Hyclate 100 ml @ 50 mls/hr Q12H IV 08/19/25 10:45 08/23/25 22:07 50 MLS/HR Albuterol 2.5 mg Q4HR NEB 08/22/25 10:00 08/23/25 22:22 2.5 MG Ipratropium [place] 0.5 mg Q4HR NEB 08/22/25 10:00 08/23/25 22:22 0.5 MG Methylprednisolone Sodium Succinate 60 mg Q8HR IV 08/22/25 14:00 08/24/25 05:41 60 MG Laboratory Results Laboratory Tests 08/19/25 06:38 Urinalysis Test 08/17/25 20:26 Urine Color Yellow (Yellow) Urine Clarity Turbid (Clear) H Urine pH 6.0 (5.0-9.0) Urine Specific [place] 1.023 (1.001-1.035) Urine Protein 1+ (Negative) H Urine Ketones Negative (Negative) Urine Blood Negative /uL (Negative) Urine Nitrite Negative (Negative) Urine Bilirubin Negative (Negative) Urine Urobilinogen 2 mg/dL (Negative) H Urine Leukocyte Esterase 2+ /uL (Negative) Urine RBC 3 /hpf (0 - 4) Urine Microscopic WBC 9 /HPF (0-5) H Urine Squamous Epithelial Cells Mod /hpf (<5) Urine Bacteria None seen /hpf (None Seen) Urine Mucus Few (None Seen) Urine Glucose Normal mg/dL (Normal) Microbiology Microbiology Date/Time Source Procedure Growth Status 08/17/25 20:26 Voided Urine Urine Culture - Final Complete 08/17/25 20:03 Blood Blood Culture - Final NO GROWTH AFTER 5 DAYS OF INCUBATION. Complete Labs and/or images reviewed: Labs reviewed by me, Image(s) reviewed by me Assessment/Plan Assessment/Plan Sepsis secondary to urinary tract infection: Blood cultures negative, urine cultures mixed , continue Rocephin, Right Lower lobe pneumonia continue Rocephin doxycycline, pulmonary consult by Dr. Banerjee appreciated albuterol Atrovent Solu-Medrol Transaminitis CT abdomen pelvis without contrast negative Anxiety Flu test negative Haylee test negative Time spent 48 minutes APOLONIA Marie at bedside Ordered D-dimer ABG on room air physical therapy incentive spirometry Plan discussed with: Patient My Orders Orders - EDWIGE CORTEZ MD Procedure Category Date Status Time Abg W/ Co-Ox RT 08/24/25 Logged 04:00 Pt Request For Service PT 08/24/25 Logged 09:52 Abg W/ Co-Ox RT 08/24/25 Logged 09:53 Incentive Spirometry ORDERS 08/24/25 Transmitted 09:53 D-Dimer LAB 08/24/25 Verified 09:55 Date of Service: Aug 24, 2025 Billing Provider: EDWIGE CORTEZ MD Common Visit Codes: [id number] INP/OBS CARE(HIGH) EDWIGE CORTEZ MD Aug 24, 2025 09:57
[2025-08-24 15:23] LABS: Base Excess 4.1 mmol/L (-2.0-3.0)
[2025-08-24 15:58] LABS: Alanine Aminotransferase 47 U/L (7-40); Albumin 4.1 g/dL (3.2-4.8); Alkaline Phosphatase 225 U/L (46-116); Anion Gap 8 (5-15); BUN/Creatinine Ratio 20.8 (10.0-20.0); Bilirubin, Total < 0.2 mg/dL (0.2-1.0); Blood Urea Nitrogen 16 mg/dL (9-23); Calcium 9.2 mg/dL (8.7-10.4); Carbon Dioxide 28 mmol/L (20-31); Chloride 105 mmol/L (98-107); Glucose 175 mg/dL (74-106); Potassium 3.9 mmol/L (3.5-5.1); Sodium 141 mmol/L (136-145); Total Protein 6.9 g/dL (5.7-8.2)
[2025-08-24] MEDS ORDERED: IOHEXOL 350 MG/ML 100ML IJ ONE (16:08)
--- NOTE | 2025-08-24 23:25 | DVHPN2 ---
Subjective DOS: 08/24/2025 Patient seen and examined at bedside. Remains on supplemental oxygen Overnight events reviewed. Reviewed: Care Plan, H&P, Labs, Medications, Previous Orders, Radiology Changes from previous H/P or p: No Changes Eyes: No Pain, No Vision change, No Conjunctivae inflammation, No Eyelid inflammation, No Other, No Redness ENT: No Ear pain, No Ear discharge, No Nose pain, No Nose discharge, No Nose congestion, No Mouth pain, No Mouth swelling; Throat pain; No Throat swelling, No Other Cardiovascular: No Chest Pain, No Palpitations, No Orthopnea, No Paroxysmal Noc. Dyspnea, No Edema, No Lt Headedness, No Other Respiratory: No Cough, No Dry, No Shortness of breath, No SOB with excertion, No Wheezing, No Hemoptysis, No Pleuritic Pain, No Sputum, No Other Gastrointestinal: No Nausea, No Vomiting, No Abdominal Pain, No Diarrhea, No Constipation, No Melena, No Hematochezia, No Other Genitourinary: Dysuria, Frequency; No Incontinence, No Hematuria, No Retention, No Other Musculoskeletal: No other, No neck pain, No shoulder pain, No arm pain, No back pain, No hand pain, No leg pain, No foot pain Skin: No Rash, No Lesions, No Jaundice, No Bruising, No Other Objective Vitals Vital Signs Date Time Temp Pulse Resp B/P (MAP) Pulse Ox O2 Delivery O2 Flow Rate FiO2 08/24/25 22:31 95 18 100 08/24/25 21:00 98.1 113/70 (84) 98.1 08/24/25 19:49 Room Air 2.0 08/24/25 19:49 28 Intake/Output Intake and Output 08/24/25 07:00 Intake Total 2670 ml Balance 2670 ml Intake Oral 2520 ml IV Total 150 ml # Voids 6 Exam Gen.: Patient lying in bed in no apparent distress. On supplemental oxygen. Head: Normocephalic, atraumatic. Eyes: EOMI/PERRLA. Ears: Normal hearing. Normal anatomy. Neck/trachea: Trachea midline, supple. Nose: Normal external anatomy. Mouth: Moist mucous membranes. Chest: Decreased air entry bilaterally. No wheezing or rhonchi. Cardiovascular: Positive S1, positive S2. Regular rate and rhythm. Abdomen: Positive bowel sounds in all 4 quadrants. Soft, non-tender, non- distended. : Deferred. Rectal: Deferred. Skin: Warm, dry. Intact. Extremities: 2+ radial pulses bilaterally. No lower extremity edema. Neuro: Awake, alert, oriented x3. No gross motor or sensory deficits. Cranial nerves II through XII intact. Gait not assessed. Medications Current Medications Medications Dose Ordered Sig/Marika Route Start Time Stop Time Status Last Admin Dose Admin Acetaminophen/ Hydrocodone Bitart 1 tab Q4HP PRN PO 08/17/25 21:45 08/23/25 09:36 1 TAB Ondansetron HCl 4 mg Q4HP PRN IV 08/17/25 21:45 08/18/25 18:48 4 MG Docusate Sodium 100 mg BIDPRN PRN PO 08/17/25 21:45 Enoxaparin Sodium 40 mg DAILY SC 08/18/25 10:00 08/23/25 09:37 40 MG Acetaminophen 650 mg Q6HP PRN PO 08/17/25 21:45 08/21/25 02:49 650 MG Nitroglycerin 0.4 mg Q5MINP PRN SL 08/17/25 21:45 Morphine Sulfate 2 mg Q30M PRN IV 08/17/25 21:45 Famotidine 20 mg BID PO 08/17/25 22:00 08/24/25 21:25 20 MG Ceftriaxone Sodium 50 ml @ 100 mls/hr DAILY@09 IV 08/19/25 09:00 08/24/25 07:58 100 MLS/HR Trazodone HCl 100 mg HS PO 08/18/25 22:00 08/24/25 21:27 100 MG Paroxetine HCl 40 mg DAILY PO 08/19/25 10:00 08/24/25 10:13 40 MG Guaifenesin/ Dextromethorphan 10 ml TID PO 08/18/25 14:00 08/24/25 21:26 10 ML Morphine Sulfate 2 mg Q4HPRN PRN IV 08/18/25 18:45 08/21/25 15:03 2 MG Doxycycline Hyclate 100 ml @ 50 mls/hr Q12H IV 08/19/25 10:45 08/24/25 21:32 50 MLS/HR Albuterol 2.5 mg Q4HR NEB 08/22/25 10:00 08/24/25 22:25 2.5 MG Ipratropium [place] 0.5 mg Q4HR NEB 08/22/25 10:00 08/24/25 22:25 0.5 MG Methylprednisolone Sodium Succinate 60 mg Q8HR IV 08/22/25 14:00 08/24/25 21:23 60 MG Laboratory Results Laboratory Tests 08/19/25 06:38 08/24/25 14:46 Chemistry Test 08/24/25 14:46 Albumin 4.1 g/dL (3.2-4.8) Calcium Level 9.2 mg/dL (8.7-10.4) Total Protein 6.9 g/dL (5.7-8.2) Coagulation Test 08/24/25 10:24 D-Dimer, Quantitative 1.18 mg/L FEU (0.0-0.49) H LFT Test 08/24/25 14:46 Alanine Aminotransferase (ALT) 47 U/L (7-40) H Alkaline Phosphatase 225 U/L (46-116) H Aspartate Amino Transferase (AST) 24 U/L (13-40) Total Bilirubin < 0.2 mg/dL (0.2-1.0) L Urinalysis Test 08/17/25 20:26 Urine Color Yellow (Yellow) Urine Clarity Turbid (Clear) H Urine pH 6.0 (5.0-9.0) Urine Specific [place] 1.023 (1.001-1.035) Urine Protein 1+ (Negative) H Urine Ketones Negative (Negative) Urine Blood Negative /uL (Negative) Urine Nitrite Negative (Negative) Urine Bilirubin Negative (Negative) Urine Urobilinogen 2 mg/dL (Negative) H Urine Leukocyte Esterase 2+ /uL (Negative) Urine RBC 3 /hpf (0 - 4) Urine Microscopic WBC 9 /HPF (0-5) H Urine Squamous Epithelial Cells Mod /hpf (<5) Urine Bacteria None seen /hpf (None Seen) Urine Mucus Few (None Seen) Urine Glucose Normal mg/dL (Normal) Blood Gas Results Test 08/24/25 15:18 Arterial Blood pH 7.503 (7.350-7.450) FiO2 % 21.0 Microbiology Microbiology Date/Time Source Procedure Growth Status 08/17/25 20:26 Voided Urine Urine Culture - Final Complete 08/17/25 20:03 Blood Blood Culture - Final NO GROWTH AFTER 5 DAYS OF INCUBATION. Complete Assessment/Plan Assessment/Plan Impression: Acute hypoxic respiratory failure Dependence on supplemental oxygen Right lower lobe pneumonia Sepsis secondary to urinary tract infection Transaminitis Obesity Events: Remains on supplemental oxygen, 3 LPM NC Taper O2 as tolerated- goal to liberate from O2 Assess for home oxygen requirements. Of note, daughters vape at home. Patient has elevated risk factors for SHERRILL including snoring, BMI >30. Recommend outpatient sleep study for evaluation of sleep apnea. Continue bronchodilators Continue steroids Continue antibiotics for pneumonia Elevated D-dimer - rule out PE. CTA of chest ordered to assess. Pain control Avoid oversedation Patient is stable for discharge from the pulmonary standpoint. Pepcid for GI ppx Lovenox for DVT ppx Labs and imaging reviewed. Rest of plan as noted below. Plan: Supplemental oxygen Titrate to keep O2 sats above 92%. CXR reveals no acute cardiopulmonary disease. Chest CT reviewed, demonstrates: Scattered atelectasis / scarring. Borderline mediastinal nodes, possibly reactive. Dense right lower lobe opacities suggesting infectious/inflammatory process in the appropriate clinical setting. Flu test negative Gena test negative Continue bronchodilators IV steroids Continue antibiotics Blood cultures negative, urine cultures mixed. Monitor renal function. Monitor electrolytes. Supplement as necessary. Monitor ins and outs. Recommend diet and lifestyle modifications for weight reduction Obesity complicates all care GI/DVT prophylaxis. Prognosis: Guarded given patient's multiple co-morbidities. Rest of plan per hospitalist and other consultants. Thank you, Dr. Cabrera, for allowing me to participate in this patient's care. Further recommendations will depend on the patient's clinical course. Please do not hesitate to contact me if you have any questions or concerns. This medical document was created using an electronic medical record system with [employer] dictation system. Although these documentations are being carefully reviewed, there may still be some phonetic and typographical changes. The errors are purely typographical, due to imperfection on the software program, and do not reflect any compromise in the patient's medical care. Plan discussed with: Patient, Other (APOLONIA Marie) My Orders Orders - SUNDAY DESIR MD Procedure Category Date Status Time Ct Angio Chest CT 08/24/25 Taken Contrast 11:48 Visit Coding Pulmonary Billing Provider: SUNDAY DESIR MD Date of Service if different f: Aug 24, 2025 Common Visit Codes: [id number] INP/OBS CARE(HIGH) SUNDAY DESIR MD Aug 24, 2025 23:25
--- NOTE | 2025-08-24 23:55 | DVH ---
CTA Chest with intravenous contrast INDICATION: ELEVATED D-DIMER RULE OUT PULMONARY EMBOLISM COMPARISON: CT CHEST WITHOUT CONTRAST on DOS: 08/19/25, XY CHEST XRAY 1 VIEW on DOS: 08/17/25 TECHNIQUE: Multidetector spiral CTA of the chest was performed of the chest with intravenous contrast. PULMONARY ANGIOGRAPHY PROTOCOL was utilized using a bolus- tracking technique centered on the main pulmonary artery. Axial, coronal and sagittal multiplanar and MIP reformats were performed. Radiation Dose : 1. Chest: CTDI volume is 26.82 mGy. Dose-length product is 954.12 mGy*cm The dose indicators for CT are the volume Computed Tomography (CT) Dose Index (CTDIvol) and the Dose Length Product (DLP), and are measured in units of mGy and mGy-cm, respectively. These indicators are not patient dose, but values generated from the CT scanner acquisition factors. The report includes radiation exposure data for exposures received during this examination. FINDINGS: Pulmonary artery: No pulmonary embolism Lower neck: Normal thyroid. Lungs: Mild diffuse interlobular septal thickening with hazy ground-glass opacity throughout both lungs. Mild streaky atelectatic changes within the right lower lobe. Heart/Vascular Structures: Normal heart size. No pericardial effusion. Lymph Nodes: No adenopathy Pleura: No pleural effusion or significant pneumothorax. Musculoskeletal: No acute osseous abnormality. Soft tissues: Bilateral breast implants. Upper abdomen: Limited portions of the upper abdomen are unremarkable. IMPRESSION: No pulmonary embolus. Mild pulmonary edema.
[2025-08-25] VITALS (14 sets, daily range): BP systolic 103–138; BP diastolic 58–83; PULSE 70–94; RESP 16–92; TEMP 97.6–98.2; O2SAT 92–100
[2025-08-25] MEDS ORDERED: DOXY100C79 PO (11:23)
[2025-08-25] MEDS ORDERED: PRED20TA2 PO (11:23)
[2025-08-25] MEDS ORDERED: IPRIH IN (11:23)
[2025-08-25] MEDS ORDERED: ALBUAER3 IN (11:23)
--- NOTE | 2025-08-25 11:26 | DVHPN2 ---
Reviewed: Care Plan, H&P, Labs, Medications, Previous Orders, Radiology Changes from previous H/P or p: No Changes Eyes: No Pain, No Vision change, No Conjunctivae inflammation, No Eyelid inflammation, No Other, No Redness ENT: No Ear pain, No Ear discharge, No Nose pain, No Nose discharge, No Nose congestion, No Mouth pain, No Mouth swelling; Throat pain; No Throat swelling, No Other Cardiovascular: No Chest Pain, No Palpitations, No Orthopnea, No Paroxysmal Noc. Dyspnea, No Edema, No Lt Headedness, No Other Respiratory: No Cough, No Dry, No Shortness of breath, No SOB with excertion, No Wheezing, No Hemoptysis, No Pleuritic Pain, No Sputum, No Other Gastrointestinal: No Nausea, No Vomiting, No Abdominal Pain, No Diarrhea, No Constipation, No Melena, No Hematochezia, No Other Genitourinary: Dysuria, Frequency; No Incontinence, No Hematuria, No Retention, No Other Musculoskeletal: No other, No neck pain, No shoulder pain, No arm pain, No back pain, No hand pain, No leg pain, No foot pain Skin: No Rash, No Lesions, No Jaundice, No Bruising, No Other Objective Vitals Vital Signs Date Time Temp Pulse Resp B/P (MAP) Pulse Ox O2 Delivery O2 Flow Rate FiO2 08/25/25 09:58 70 16 100 08/25/25 09:52 Nasal Cannula* 2 28 08/25/25 09:00 97.6 103/58 (73) 97.6 Intake/Output Intake and Output 08/25/25 07:00 Intake Total 3050 ml Balance 3050 ml Intake Oral 3050 ml # Voids 5 # Bowel Movements 1 Medications Current Medications Medications Dose Ordered Sig/Mairka Route Start Time Stop Time Status Last Admin Dose Admin Acetaminophen/ Hydrocodone Bitart 1 tab Q4HP PRN PO 08/17/25 21:45 08/23/25 09:36 1 TAB Ondansetron HCl 4 mg Q4HP PRN IV 08/17/25 21:45 08/18/25 18:48 4 MG Docusate Sodium 100 mg BIDPRN PRN PO 08/17/25 21:45 Enoxaparin Sodium 40 mg DAILY SC 08/18/25 10:00 08/23/25 09:37 40 MG Acetaminophen 650 mg Q6HP PRN PO 08/17/25 21:45 08/21/25 02:49 650 MG Nitroglycerin 0.4 mg Q5MINP PRN SL 08/17/25 21:45 Morphine Sulfate 2 mg Q30M PRN IV 08/17/25 21:45 Famotidine 20 mg BID PO 08/17/25 22:00 08/24/25 21:25 20 MG Ceftriaxone Sodium 50 ml @ 100 mls/hr DAILY@09 IV 08/19/25 09:00 08/24/25 07:58 100 MLS/HR Trazodone HCl 100 mg HS PO 08/18/25 22:00 08/24/25 21:27 100 MG Paroxetine HCl 40 mg DAILY PO 08/19/25 10:00 08/24/25 10:13 40 MG Guaifenesin/ Dextromethorphan 10 ml TID PO 08/18/25 14:00 08/25/25 06:26 10 ML Morphine Sulfate 2 mg Q4HPRN PRN IV 08/18/25 18:45 08/21/25 15:03 2 MG Doxycycline Hyclate 100 ml @ 50 mls/hr Q12H IV 08/19/25 10:45 08/24/25 21:32 50 MLS/HR Albuterol 2.5 mg Q4HR NEB 08/22/25 10:00 08/25/25 09:52 2.5 MG Ipratropium [place] 0.5 mg Q4HR NEB 08/22/25 10:00 08/25/25 09:52 0.5 MG Methylprednisolone Sodium Succinate 60 mg Q8HR IV 08/22/25 14:00 08/25/25 06:29 60 MG Laboratory Results Laboratory Tests 08/19/25 06:38 08/24/25 14:46 Chemistry Test 08/24/25 14:46 Albumin 4.1 g/dL (3.2-4.8) Calcium Level 9.2 mg/dL (8.7-10.4) Total Protein 6.9 g/dL (5.7-8.2) LFT Test 08/24/25 14:46 Alanine Aminotransferase (ALT) 47 U/L (7-40) H Alkaline Phosphatase 225 U/L (46-116) H Aspartate Amino Transferase (AST) 24 U/L (13-40) Total Bilirubin < 0.2 mg/dL (0.2-1.0) L Urinalysis Test 08/17/25 20:26 Urine Color Yellow (Yellow) Urine Clarity Turbid (Clear) H Urine pH 6.0 (5.0-9.0) Urine Specific [place] 1.023 (1.001-1.035) Urine Protein 1+ (Negative) H Urine Ketones Negative (Negative) Urine Blood Negative /uL (Negative) Urine Nitrite Negative (Negative) Urine Bilirubin Negative (Negative) Urine Urobilinogen 2 mg/dL (Negative) H Urine Leukocyte Esterase 2+ /uL (Negative) Urine RBC 3 /hpf (0 - 4) Urine Microscopic WBC 9 /HPF (0-5) H Urine Squamous Epithelial Cells Mod /hpf (<5) Urine Bacteria None seen /hpf (None Seen) Urine Mucus Few (None Seen) Urine Glucose Normal mg/dL (Normal) Blood Gas Results Test 08/24/25 15:18 Arterial Blood pH 7.503 (7.350-7.450) FiO2 % 21.0 Microbiology Microbiology Date/Time Source Procedure Growth Status 08/17/25 20:26 Voided Urine Urine Culture - Final Complete 08/17/25 20:03 Blood Blood Culture - Final NO GROWTH AFTER 5 DAYS OF INCUBATION. Complete Labs and/or images reviewed: Labs reviewed by me, Image(s) reviewed by me Assessment/Plan Assessment/Plan Sepsis secondary to urinary tract infection: Blood cultures negative, urine cultures mixed , continue Rocephin, Right Lower lobe pneumonia continue Rocephin doxycycline, pulmonary consult by Dr. Banerjee appreciated albuterol Atrovent Solu-Medrol Transaminitis CT abdomen pelvis without contrast negative Anxiety Flu test negative Haylee test negative Time spent 48 minutes D-dimer 1.18, PE ruled out ABG on room air shows patient did not qualify for home oxygen Agreeable for the discharge plan APOLONIA Nguyen bedside Plan discussed with: Patient My Orders Orders - EDWIGE CORTEZ MD Procedure Category Date Status Time Abg W/ Co-Ox RT 08/24/25 Logged 13:02 Schedule For Dc IGNACIO 08/25/25 Transmitted Clinic F/U 11:23 Date of Service: Aug 25, 2025 Billing Provider: EDWIGE CORTEZ MD Common Visit Codes: [id number] INP/OBS CARE(HIGH) EDWIGE CORTEZ MD Aug 25, 2025 11:26
--- NOTE | 2025-08-25 11:30 | DVHDS2 ---
Discharge Summary Date of Admission Aug 17, 2025 at 21:34 Date of Discharge: Aug 25, 2025 Admitting Diagnosis Shortness of breath Wounds: None Labs/Diagnostic Data: Laboratory Results Test 08/24/25 15:18 08/24/25 14:46 08/24/25 10:24 08/19/25 12:25 Blood Gas Specimen Type Arterial Blood Gas Sample Site Right radial Blood Gas Patient Temperature 37.0 Arterial Blood Date Drawn [id number] Arterial Blood pH 7.503 (7.350-7.450) Arterial Blood Partial Pressure CO2 35.3 mmHg (32.0-45.0) Arterial Blood Partial Pressure O2 60.0 mmHg (83.0-108.0) Arterial Blood HCO3 27.1 mmol/L (21.0-28.0) Arterial Blood Oxygen Saturation 92.5 % (94.0-98.0) Arterial Blood Base Excess 4.1 mmol/L (-2.0-3.0) Arterial Blood Oxyhemoglobin 91.7 % (94.0-98.0) Arterial Blood Carboxyhemoglobin 0.6 % (0.5-1.5) Arterial Blood Methemoglobin 0.3 % (0.0-1.5) Arterial Blood Deoxyhemoglobin 7.4 % (0.0-5.0) [place] Test Yes Blood Gas Total Hemoglobin 12.60 g/dL (12.0-16.0) Blood Gas Modality Room air FiO2 % 21.0 Sodium Level 141 mmol/L (136-145) Potassium Level 3.9 mmol/L (3.5-5.1) Chloride Level 105 mmol/L (98-107) Carbon Dioxide Level 28 mmol/L (20-31) Anion Gap 8 (5-15) Blood Urea Nitrogen 16 mg/dL (9-23) Creatinine 0.77 mg/dL (0.550-1.02) Glomerular Filtration Rate Calc 93 mL/min (>90) BUN/Creatinine Ratio 20.8 (10.0-20.0) Serum Glucose 175 mg/dL (74-106) Calcium Level 9.2 mg/dL (8.7-10.4) Total Bilirubin < 0.2 mg/dL (0.2-1.0) Aspartate Amino Transferase (AST) 24 U/L (13-40) Alanine Aminotransferase (ALT) 47 U/L (7-40) Alkaline Phosphatase 225 U/L (46-116) Total Protein 6.9 g/dL (5.7-8.2) Albumin 4.1 g/dL (3.2-4.8) D-Dimer, Quantitative 1.18 mg/L FEU (0.0-0.49) Blood Gas Critical Value Read Back Yes Blood Gas Notified Whom Dr. tobin roberson Blood Gas Notified Time [id number] Blood Gas Notified By Test 08/19/25 06:38 08/18/25 04:41 08/17/25 23:30 08/17/25 20:26 White Blood Count 10.2 10^3/uL (4.4-10.8) Red Blood Count 4.24 10^6/uL (4.0-5.20) Hemoglobin 12.1 g/dL (12.2-16.2) Hematocrit 36.0 % (36.0-46.0) Mean Corpuscular Volume 84.9 fL (80.0-100.0) Mean Corpuscular Hemoglobin 28.5 pg (28.0-32.0) Mean Corpuscular Hemoglobin Concent 33.5 g/dL (32.0-36.0) Red Cell Distribution Width 13.1 % (11.8-14.3) Platelet Count 240 10^3/uL (140-450) Mean Platelet Volume 8.7 fL (6.9-10.8) Neutrophils (%) (Auto) 71.5 % (37.0-80.0) Lymphocytes (%) (Auto) 18.3 % (10.0-50.0) Monocytes (%) (Auto) 8.9 % (0.0-12.0) Eosinophils (%) (Auto) 1.0 % (0.0-7.0) Basophils (%) (Auto) 0.3 % (0.0-2.0) Neutrophils # (Auto) 7.3 10 ^3/uL (1.6-8.6) Lymphocytes # (Auto) 1.9 10 ^3/uL (0.4-5.4) Monocytes # (Auto) 0.9 10 ^3/uL (0-1.3) Eosinophils # (Auto) 0.1 10 ^3/uL (0-0.8) Basophils # (Auto) 0 10 ^3/uL (0-0.2) Nucleated Red Blood Cells 0.1 % Hepatitis B Surface Antigen Negative (Negative) Hepatitis C Antibody Negative (Negative) SARS-CoV-2 Antigen (Rapid) Negative (NEGATIVE) Urine Color Yellow (Yellow) Urine Clarity Turbid (Clear) Urine pH 6.0 (5.0-9.0) Urine Specific [place] 1.023 (1.001-1.035) Urine Protein 1+ (Negative) Urine Ketones Negative (Negative) Urine Blood Negative /uL (Negative) Urine Nitrite Negative (Negative) Urine Bilirubin Negative (Negative) Urine Urobilinogen 2 mg/dL (Negative) Urine Leukocyte Esterase 2+ /uL (Negative) Urine RBC 3 /hpf (0 - 4) Urine Microscopic WBC 9 /HPF (0-5) Urine Squamous Epithelial Cells Mod /hpf (<5) Urine Bacteria None seen /hpf (None Seen) Urine Mucus Few (None Seen) Urine Glucose Normal mg/dL (Normal) Test 08/17/25 20:07 08/17/25 20:01 Influenza Type A Antigen Negative (Negative) Influenza Type B Antigen Negative (Negative) Hemoglobin A1c 5.6 % A1C (<5.7) Lactic Acid Level 1.2 mmol/L (0.4-2.0) Beta HCG, Quantitative 1.3 mIU/mL (1.5-4.2) Other Laboratory Tests 08/24/25 14:46 08/19/25 06:38 Brief Hx & Hospital Course: 49-year-old female with a history of anxiety came in complaining of shortness of breaths. Patient is found to be in sepsis secondary to urinary tract infection and pneumonia blood cultures negative urine cultures were mixed treated with Rocephin for urinary infection also had right lower lobe pneumonia treated with the Rocephin doxycycline pulmonary consult by Dr. Banerjee started on albuterol Atrovent and Solu-Medrol CT chest showed thick right lower lobe pneumonia D- dimer slightly elevated 1.180 PE ruled out Haylee test negative flu test negative CT abdomen pelvis without contrast negative patient improved ABG on room air shows patient does not need home oxygen at the time of discharge patient on room air afebrile stable vital signs discharged home on doxycycline albuterol Atrovent and prednisone and she will follow up with the discharge clinic in one week as she has no primary Dr. APOLONIA dasilva at bedside during the discharge plan discussion Consults/Reason for consult Pulmonary Dr. Banerjee Operations or Procedures CT chest without contrast CT chest angiogram Condition at Discharge: Fair Final Diagnosis/Problems List Sepsis secondary to urinary tract infection: Blood cultures negative, urine cultures mixed , continue Rocephin, Right Lower lobe pneumonia continue Rocephin doxycycline, pulmonary consult by Dr. Banerjee appreciated albuterol Atrovent Solu-Medrol Transaminitis CT abdomen pelvis without contrast negative Anxiety Flu test negative Haylee test negative Time spent 48 minutes D-dimer 1.18, PE ruled out ABG on room air shows patient did not qualify for home oxygen Discharge Disposition: Home Discharge Instruct/Medications Diet: Regular Activity: Light activity Follow Up/Referral: Follow up with the discharge clinic in one week Use medications as prescribed Medications: Doxycycline Prednisone tablets Albuterol MDI Atrovent MDI [facility] Albuterol Sulfate (Ventolin Mdi), 90 MCG IN QID Doxycycline (Monohydrate) (Doxycycline), 100 MG PO BID Ipratropium [place] Hfa (Atrovent Hfa), 17 MCG IN QID Prednisone (Prednisone), 20 MG PO DAILY Miscellaneous Medications Paroxetine (Paxil Tablet), 40 MG GT, (Reported) Trazodone Hcl (Trazodone Hcl), 100 MG PO, (Reported) 39 (Time taken for discharge summary 39 minutes) Discharge Statement: "Patient was advised to return to the ER or call 911 if any headaches, dizziness, shortness of breath, chest pain, abdominal pain, bleeding, fevers, or worsening of medical condition. Patient was counseled about treatment plan, medications, possible side effects, patientverbalized understanding. All questions were answered to the best of my ability. This discharge took greater then 30 minutes in planning, reviewing documentation, counseling the patient, and discussing with other team members." ASSESSMENT ASSESSMENT Hospital Course Improved Assessment Sepsis secondary to urinary tract infection: Blood cultures negative, urine cultures mixed , continue Rocephin, Right Lower lobe pneumonia continue Rocephin doxycycline, pulmonary consult by Dr. Banerjee appreciated albuterol Atrovent Solu-Medrol Transaminitis CT abdomen pelvis without contrast negative Anxiety Flu test negative Haylee test negative Time spent 48 minutes D-dimer 1.18, PE ruled out ABG on room air shows patient did not qualify for home oxygen Date of Service: Aug 25, 2025 Billing Provider: EDWIGE ROBERSON MD Common Visit Codes: [id number] INP/OBS CARE(HIGH) EDWIGE ROBERSON MD Aug 25, 2025 11:30
--- NOTE | 2025-08-25 23:50 | DVHPN2 ---
Subjective DOS: 08/25/2025 Patient seen and examined at bedside. Remains on supplemental oxygen Overnight events reviewed. Reviewed: Care Plan, H&P, Labs, Medications, Previous Orders, Radiology Changes from previous H/P or p: No Changes Eyes: No Pain, No Vision change, No Conjunctivae inflammation, No Eyelid inflammation, No Other, No Redness ENT: No Ear pain, No Ear discharge, No Nose pain, No Nose discharge, No Nose congestion, No Mouth pain, No Mouth swelling; Throat pain; No Throat swelling, No Other Cardiovascular: No Chest Pain, No Palpitations, No Orthopnea, No Paroxysmal Noc. Dyspnea, No Edema, No Lt Headedness, No Other Respiratory: No Cough, No Dry, No Shortness of breath, No SOB with excertion, No Wheezing, No Hemoptysis, No Pleuritic Pain, No Sputum, No Other Gastrointestinal: No Nausea, No Vomiting, No Abdominal Pain, No Diarrhea, No Constipation, No Melena, No Hematochezia, No Other Genitourinary: Dysuria, Frequency; No Incontinence, No Hematuria, No Retention, No Other Musculoskeletal: No other, No neck pain, No shoulder pain, No arm pain, No back pain, No hand pain, No leg pain, No foot pain Skin: No Rash, No Lesions, No Jaundice, No Bruising, No Other Objective Vitals Vital Signs Date Time Temp Pulse Resp B/P (MAP) Pulse Ox O2 Delivery O2 Flow Rate FiO2 08/25/25 17:00 97.9 81 92 120/66 (84) 92 97.9 08/25/25 14:31 Nasal Cannula* 2 28 Intake/Output Intake and Output 08/25/25 07:00 Intake Total 3050 ml Balance 3050 ml Intake Oral 3050 ml # Voids 5 # Bowel Movements 1 Exam Gen.: Patient lying in bed in no apparent distress. On supplemental oxygen. Head: Normocephalic, atraumatic. Eyes: EOMI/PERRLA. Ears: Normal hearing. Normal anatomy. Neck/trachea: Trachea midline, supple. Nose: Normal external anatomy. Mouth: Moist mucous membranes. Chest: Decreased air entry bilaterally. No wheezing or rhonchi. Cardiovascular: Positive S1, positive S2. Regular rate and rhythm. Abdomen: Positive bowel sounds in all 4 quadrants. Soft, non-tender, non- distended. : Deferred. Rectal: Deferred. Skin: Warm, dry. Intact. Extremities: 2+ radial pulses bilaterally. No lower extremity edema. Neuro: Awake, alert, oriented x3. No gross motor or sensory deficits. Cranial nerves II through XII intact. Gait not assessed. Laboratory Results Laboratory Tests 08/19/25 06:38 08/24/25 14:46 Urinalysis Test 08/17/25 20:26 Urine Color Yellow (Yellow) Urine Clarity Turbid (Clear) H Urine pH 6.0 (5.0-9.0) Urine Specific [place] 1.023 (1.001-1.035) Urine Protein 1+ (Negative) H Urine Ketones Negative (Negative) Urine Blood Negative /uL (Negative) Urine Nitrite Negative (Negative) Urine Bilirubin Negative (Negative) Urine Urobilinogen 2 mg/dL (Negative) H Urine Leukocyte Esterase 2+ /uL (Negative) Urine RBC 3 /hpf (0 - 4) Urine Microscopic WBC 9 /HPF (0-5) H Urine Squamous Epithelial Cells Mod /hpf (<5) Urine Bacteria None seen /hpf (None Seen) Urine Mucus Few (None Seen) Urine Glucose Normal mg/dL (Normal) Microbiology Microbiology Date/Time Source Procedure Growth Status 08/17/25 20:26 Voided Urine Urine Culture - Final Complete 08/17/25 20:03 Blood Blood Culture - Final NO GROWTH AFTER 5 DAYS OF INCUBATION. Complete Assessment/Plan Assessment/Plan Impression: Acute hypoxic respiratory failure Dependence on supplemental oxygen Right lower lobe pneumonia Sepsis secondary to urinary tract infection Transaminitis Obesity Events: Remains on supplemental oxygen, 2 LPM NC Taper O2 as tolerated- goal to liberate from O2 Assess for home oxygen requirements. Of note, daughters vape at home. Patient has elevated risk factors for SHERRILL including snoring, BMI >30. Recommend outpatient sleep study for evaluation of sleep apnea. No acute overnight events Continue bronchodilators Continue steroids Continue antibiotics for pneumonia Incentive spirometry Elevated D-dimer - CTA of chest reviewed; negative for pulmonary embolism. Mild pulmonary edema. Pain control Avoid oversedation Patient is stable for discharge from the pulmonary standpoint. Pepcid for GI ppx Lovenox for DVT ppx Labs and imaging reviewed. Rest of plan as noted below. Plan: Supplemental oxygen Titrate to keep O2 sats above 92%. CXR reveals no acute cardiopulmonary disease. Chest CT reviewed, demonstrates: Scattered atelectasis / scarring. Borderline mediastinal nodes, possibly reactive. Dense right lower lobe opacities suggesting infectious/inflammatory process in the appropriate clinical setting. Flu test negative Gena test negative Continue bronchodilators IV steroids Continue antibiotics Blood cultures negative, urine cultures mixed. Monitor renal function. Monitor electrolytes. Supplement as necessary. Monitor ins and outs. Recommend diet and lifestyle modifications for weight reduction Obesity complicates all care GI/DVT prophylaxis. Prognosis: Guarded given patient's multiple co-morbidities. Rest of plan per hospitalist and other consultants. Thank you, Dr. Cabrera, for allowing me to participate in this patient's care. Further recommendations will depend on the patient's clinical course. Please do not hesitate to contact me if you have any questions or concerns. This medical document was created using an electronic medical record system with [employer] dictation system. Although these documentations are being carefully reviewed, there may still be some phonetic and typographical changes. The errors are purely typographical, due to imperfection on the software program, and do not reflect any compromise in the patient's medical care. Plan discussed with: Patient, Other (APOLONIA Nguyen) Visit Coding Pulmonary Billing Provider: SUNDAY DESIR MD Date of Service if different f: Aug 25, 2025 Common Visit Codes: [id number] INP/OBS CARE(HIGH) SUNDAY DESIR MD Aug 25, 2025 23:50
== END 2025-08-25 17:54 | disposition home or self-care (01) | DRG 720 ==
LOC: ER 18:11 → OVERFLOW 21:34 → TELE-EAST 22:52
PROVIDERS: ADMIT Family Medicine; ATTEND Family Medicine
DX: A41.9 Sepsis, unspecified organism (principal); J96.01 Acute respiratory failure with hypoxia; J15.69 Pneumonia due to other Gram-negative bacteria; Z99.81 Dependence on supplemental oxygen; J15.9 Unspecified bacterial pneumonia; E86.1 Hypovolemia; N39.0 Urinary tract infection, site not specified; N12 Tubulo-interstitial nephritis, not specified as acute or chronic; E66.811 Obesity, class 1; Z20.822 Contact with and (suspected) exposure to COVID-19; E87.1 Hypo-osmolality and hyponatremia; F41.1 Generalized anxiety disorder; R74.01 Elevation of levels of liver transaminase levels; Z68.34 Body mass index [BMI] 34.0-34.9, adult; Z82.49 Family history of ischemic heart disease and other diseases of the circulatory system; Z83.3 Family history of diabetes mellitus; Z79.899 Other long term (current) drug therapy
CPT/HCPCS: 36415; 36600; 71045; 71250; 71275; 76700; 80048; 80053; 81001; 82805; 83036; 83605; 84702; 85025; 85379; 86803; 87040; 87086; 87340; 87426; 87804; 94640; 97163; G0378; J2405; J2543